=== PATIENT | female | born 1955 | race Caucasian/White ===

== ENCOUNTER 2016-08-04 08:44 | Emergency (ER) | payer BC ==
[2016-08-04] MEDS ORDERED: NORMAL SALINE 1,000 ML IV SCH (09:15)
[2016-08-04 09:27] LABS: Hemoglobin 14.3 gm/dL (12.5-16.0); Mean Cell Volume 85.5 fl (78-100); Mean Corpuscular Hemoglobin 28.4 pg (27-31); Mean Corpuscular Hgb Conc 33.3 g/dl (32-36); Mean Platelet Volume 13.6 fl (6.0-9.5); Neutrophil # 6.9 K/mm3 (1.3-6.0); Neutrophil % 56.2 % (42-75.0); Platelet Count 232 K/mm3 (150-450); Red Blood Count 5.03 M/mm3 (4.2-5.4); Red Cell Distribution Width 14.4 % (11.5-14.0); White Blood Count 12.3 K/mm3 (4.0-10.5)
[2016-08-04 09:41] LABS: Prothrombin Time (Patient) 11.2 Seconds (9.4-11.4)
[2016-08-04 09:46] LABS: INR 1.08 INR (0.90-1.10); Partial Thrombolplastin Time 23.7 Seconds (24-32)
[2016-08-04 09:51] LABS: Albumin * 3.7 gm/dl (3.4-5.0); Anion Gap 17.9 mmol/L (6.8-13.8); BUN/Creatinine Ratio 12.9 (9.0-21.6); Bilirubin, Total 0.6 mg/dL (0.0-1.1); Ca. Corrected For Albumin 8.8 mg/dL (8.4-10.2); Calcium * 8.9 mg/dL (7.9-10.9); Carbon Dioxide 25.6 mmol/L (24-32.6); Potassium 3.5 mmol/L (3.4-4.6); Total Protein 7.5 gm/dL (6.2-8.2); Troponin I 0.029 ng/ml (0.00-0.10)
--- OUTSIDE RECORDS SUMMARY | 2016-08-04 09:53 | XMS REPORT | Continuity of Care Document ---
:1955 Author Organization [facility] ([facility]) Address [address] [place] [address] Phone [phone] Care Team Providers Name Role Phone Celena Falcon Primary Care Provider [phone] Source Comments This disclosure is being made pursuant to the Care Everywhere program, applicable federal and state laws, and may not contain all informaitonavailable regarding this patient.[facility] ([facility]) Active Allergies and Adverse Reactions No Known Allergies Current Medications Prescription Sig. Disp. Refills Start Date End Date Status metFORMIN 1,000 mg Take 1,000 mg by Active tablet mouth 2 times daily with meals. levothyroxine Take 50 mcg by mouth Active (SYNTHROID) 50 mcg every morning before tablet breakfast. DULoxetine 60 mg XR Take 60 mg by mouth Active capsule daily. glipiZIDE 10 mg XL Take 10 mg by mouth 2 09/15/2015 Active tablet 3 times daily. VICTOZA 2-ANBER 0.6 Inject 1.2 mg 3 09/25/2015 Active mg/0.1 mL injection subcutaneously pen (3 mL) daily. lisinopril-hydrochlo Take 1 tablet by 2 10/18/2015 Active rothiazide 20-12.5 mouth daily. mg per tablet anastrozole 1 mg Take 1 tablet (1 mg 30 tablet 11 10/24/2015 Active tablet total) by mouth daily. Active Problems Problem Noted Date Unspecified disorder of thyroid 02/21/2007 Social History Tobacco Use Types Packs/Day Years Used Date Never Smoker Smokeless Tobacco: Never Used Last Filed Vital Signs Vital Sign Reading Time Taken Blood Pressure 154/96 10/24/2015 10:24 AM CDT Pulse 96 10/24/2015 10:24 AM CDT Temperature 36.4 C (97.5 F) 10/24/2015 10:24 AM CDT Respiratory Rate 16 10/24/2015 10:24 AM CDT Height 1.676 m (5' 5.98") 10/19/2013 1:08 PM CDT Weight 90.1 kg (198 lb 10.2 oz) 10/24/2015 10:24 AM CDT Body Mass Index 32.08 10/24/2015 10:24 AM CDT Oxygen Saturation 96% 10/19/2013 1:08 PM CDT Plan of Care Health Maintenance Due Date Last Done Comments HCV Screening 1955 Hepatitis B Vaccine (1 of 3 - Primary Series) 1955 Tdap Vaccine 1968 Lipid Disorder Screening 08/20/1975 MMR Vaccine 08/20/1975 Td Vaccine 08/20/1975 Pneumococcal Vaccine (1 of 3 - PCV13) 1976 Cervical Cancer Screening 08/20/1987 Mammogram 1997 Colonoscopy 2007 Influenza Vaccine: Seasonal (#1) 01/02/2016 Results from Last 3 Months Not on file
[2016-08-04] MEDS ORDERED: SODIUM CHLORIDE IV ONE (10:27)
[2016-08-04] MEDS ORDERED: LEVOFLOXACIN/D5W 750 MG/150 ML BAG IV SCH (10:30)
--- NOTE | 2016-08-04 10:32 | ERNOTE ---
Chest Pain/Cardiac HPI Date of Service: 08/04/16 Chief Complaint: Chest Pain Time Seen by Provider: 08/04/16 09:13 Source: patient Exam Limitations: no limitations Immunizations: IMMUNIZATION HX Immunizations Up to Date Yes Allergies/Adverse Reactions: Allergies cephalexin Allergy (Verified 08/04/16 09:07) sulfamethoxazole [From Bactrim] Allergy (Verified 08/04/16 09:07) trimethoprim [From Bactrim] Allergy (Verified 08/04/16 09:07) Home Medications: HOME MEDICATIONS Anastrozole 1 mg PO DAILY 11/21/12 [Last Taken Unknown] Glipizide [Glipizide Xl] 10 mg PO TID 11/21/12 [Last Taken Unknown] Levothyroxine Sodium [Synthroid] 0.5 mcg PO DAILY 11/21/12 [Last Taken Unknown] Liraglutide [Victoza 2-Kamlesh] 1.2 mg SQ DAILY 11/21/12 [Last Taken Unknown] Lisinopril/Hydrochlorothiazide [Lisinopril-Hctz 20-12.5 mg Tab] 1 each PO DAILY 11/21/12 [Last Taken Unknown] Metformin HCl [Metformin HCl ER] 1,000 mg PO BID 11/21/12 [Last Taken Unknown] Duloxetine HCl [Cymbalta] 60 mg PO DAILY 08/26/14 [Last Taken Unknown] ALPRAZolam [Xanax] 0.25 mg PO TID PRN 08/04/16 [Last Taken Unknown] Naproxen Sodium [Aleve] 220 mg PO DAILY 08/04/16 [Last Taken Unknown] Narrative: Patient comes due to Chest Pain, coughing, fatigue, fast heart rate, and weakness. Timing: constant Severity/Quality: moderate Location: central Chest Pain Radiation: no radiation Activities at Onset: activity Modifying Factors - Improves: Present: nothing Modifying Factors - Worsens: Present: coughing, movement Nitro Today/Relief: no nitro taken today Aspirin Treatment Today: no aspirin today Associated Symptoms: Present: cough, shortness of breath, fever/chills, weakness. Absent: headache, dizziness, syncope, diaphoresis, palpitations, heartburn, nausea, abdominal pain, back pain, swelling/lump in chest Prior Chest Pain/Cardiac Workup: Denies: prior chest pain Prior Treatment: Reports: recently seen - Patient was send from the clinic today Review of Systems - Review of Systems Constitutional: Present: fever, chills, weakness, fatigue, malaise EYE: Present: no symptoms reported ENT: Present: no symptoms reported Respiratory: Present: cough Cardiology: Present: chest pain, palpitations. Absent: syncope, edema, claudication Gastrointestinal/Abdominal: Present: no symptoms reported Genitourinary: Present: no symptoms reported Musculoskeletal: Present: no symptoms reported Skin: Present: no symptoms reported Neurological: Present: no symptoms reported Endocrine: Present: no symptoms reported Hematologic/Lymphatic: Present: no symptoms reported Psych: Present: no symptoms reported All Other Systems: All systems neg except as marked - Patient's Past Medical History Patient History - Medical: Anxiety, Diabetes Type 2, Hypothyroidism Patient History - Cardiac/Respiratory: Hypertension, Hyperlipidemia Patient History - Cancer: Breast Patient History - Other: AIDS - Social History Living Situations: home Psych History: Hx of Anxiety, Hx of Depression Alcohol Use: none Drug Use: none - Immunizations Immunizations Up to Date: Yes Physical Exam - Physical Exam General Appearance: Present: wd/wn, alert, no apparent distress. Absent: obese , cachetic Eye Exam: Normal inspection: bilateral, PERRL: bilateral, EOMI: bilateral Ears, Nose, Throat: Present: normal ENT inspection Neck: Present: normal inspection, nontender. Absent: carotid bruit Respiratory: Present: chest tenderness - R side more, respiratory distress - moderate, expiration (prolonged). Absent: accessory muscle use Cardiovascular/Chest: Present: no murmur, normal peripheral pulses, tachycardia. Absent: JVD Gastrointestinal/Abdominal: Present: normal bowel sounds, nontender, nondistended, soft, no organomegaly Extremity Exam: Present: normal inspection, non-tender, normal range of motion, no edema Neurological Exam: Present: alert, oriented, normal mood/affect, no motor/ sensory deficits Skin Exam: Present: normal color, warm/dry Lymphatic Exam: Present: no adenopathy ED Progress - Date and Time Seen: Date and Time: 08/04/16 11:38 PORT/PSI Score: Class III 08/04/16 11:40 Hospitalist has been paged. 08/04/16 12:13 Hospitalist will come and see patient at ER 08/04/16 13:05 Patient's case has been presented to Dr. Quintero and recommendation for transfer was given. Patient's case has been presented to Dr. Milner at [facility] who accepted patient in transfer ER to ER. - Results and Orders Patient's Lab Results:: I have reviewed the patient's lab results. Results and Orders: LA: 3.7 Trop: Negative INR: Normal CBC: WBC 12K CMP: Hyperglycemia - Vital Signs Patient's Vital Signs:: I have reviewed the patient's vital signs. Vital Signs: Vital Signs 08/04/16 08/04/16 08/04/16 08:57 09:22 09:34 Temperature 36.5 C Pulse Rate 106 H 110 H 116 H Respiratory 19 28 H Rate Blood Pressure 130/87 145/96 O2 Sat by Pulse 88 L 90 Oximetry 08/04/16 10:05 Temperature Pulse Rate 110 H Respiratory 20 Rate Blood Pressure 145/94 O2 Sat by Pulse 90 Oximetry - EKG EKG: NSR, LBBB EKG read: Interp. by me EKG Comments: No ST Elevation, no previous to compare - CT/Ultrasound CT/Ultrasound Narrative: CTA of the chest was done. No PE reported. Patient has bilateral pleural effusions - Progress/Reassessment Chief Complaint: Chest Pain Progress:: Improved - Transfer of Care Expected Disposition: Transfer Plan - Plan Plan: Case will be presented to Hospitalist. Departure - Departure Clinical Impression: Pleural effusion Chest pain Qualifiers: Chest pain type: unspecified Qualified Code(s): R07.9 - Chest pain, unspecified Dyspnea Qualifiers: Dyspnea type: dyspnea on exertion Qualified Code(s): R06.09 - Other forms of dyspnea Pneumonia Qualifiers: Pneumonia type: due to unspecified organism Laterality: bilateral Lung location : unspecified part of lung Qualified Code(s): J18.9 - Pneumonia, unspecified organism CHF (congestive heart failure) Qualifiers: Congestive heart failure type: unspecified congestive heart failure type Congestive heart failure chronicity: acute Qualified Code(s): I50.9 - Heart failure, unspecified Condition: Good Referrals: Celena Falcon MD [Primary Care Provider] -
--- NOTE | 2016-08-04 10:42 | OR ---
Anesthesia Procedure Note - Anesthesia Procedure Note Date of Service: 08/04/16 Narrative: Vital Signs - Last Taken Temp 36.5 C 08/04/16 08:57 Pulse 110 H 08/04/16 10:26 Resp 27 H 08/04/16 10:26 BP 145/88 08/04/16 10:26 Pulse Ox 89 L 08/04/16 10:26 O2 Oxygen Delivery Method Nasal Cannula 08/04/16 10:36 ANESTHESIA PROCEDURE NOTE Date of Procedure: 08/04/2016 Time of procedure: 1010. Performed by: BORIS Baxter CRNA, MSN Preprocedure diagnosis: Chest pain, shortness of breath, lack of venous access for VQ scan. Post procedure diagnosis: Same. Procedure: Venipuncture for IV access. Indications: Lack of IV access for VQ scanning. Findings: See below. Details of the procedure: Ms. Maloney is a patient in the emergency department waiting for VQ scan. She has symptoms of chest pain and shortness of breath in which an MRI is not apparent. She has had a previous right mastectomy and traditionally does not have blood drawn arrive ease initiated in the right side , however, she has not had dyno technician of swelling in since the right arm her mastectomy. She does admit to having had IVs and procedures done in the right arm without issue in the past. The procedure and expectations and risks were discussed and the patient accepts and understands. The patient was prepped with Betadine and alcohol, 0.1 mL of 1% lidocaine solution was injected at the intended IV site. A #18-gauge IV was initiated in the right forearm in what appears to be the basilic vein. Heparin lock was attached and flushed with sterile saline, then secured in place. EBL: Minimal. Fluids: N/A. Specimen: N/A. Post procedure condition: The patient tolerated the procedure well. No complications were noted. Thank you for this consultation. Javier Dickson CRNA, RADIOLOGICAL HEALTH SPECIALIST, MSN
[2016-08-04] MEDS ORDERED: FUROSEMIDE 10 MG/ML VIAL IV ONE (12:10)
[2016-08-04] MEDS ORDERED: NORMAL SALINE 3,000 ML IV ONE (12:11)
[2016-08-04] MEDS ORDERED: FUROSEMIDE 10 MG/ML VIAL ONE (12:12)
[2016-08-04 15:11] VITALS: BP 137/91
== END 2016-08-04 14:46 | disposition short-term general hospital (02) ==
LOC: ER 08:44
DX: J90 Pleural effusion, not elsewhere classified (principal); R07.9 Chest pain, unspecified; R06.09 Other forms of dyspnea; J18.9 Pneumonia, unspecified organism; I50.9 Heart failure, unspecified; F41.8 Other specified anxiety disorders; E11.9 Type 2 diabetes mellitus without complications; E03.9 Hypothyroidism, unspecified; E78.5 Hyperlipidemia, unspecified; I10 Essential (primary) hypertension

== ENCOUNTER 2016-10-02 06:33 | Emergency (ER) | payer BC ==
--- NOTE | 2016-10-02 06:38 | ERNOTE ---
Dizziness ER Record Presenting Symptoms: dizziness Time Seen by Provider: 10/02/16 06:37 Source: patient Exam Limitations: no limitations Immunizations: IMMUNIZATION HX Immunizations Up to Date Yes Allergies/Adverse Reactions: Allergies Allergy/AdvReac Type Severity Reaction Status Date / Time cephalexin Allergy Verified 10/02/16 06:39 sulfamethoxazole Allergy Verified 10/02/16 06:39 [From Bactrim] trimethoprim [From Bactrim] Allergy Verified 10/02/16 06:39 Home Medications: HOME MEDICATIONS Levothyroxine Sodium [Synthroid] 50 mcg PO DAILY 11/21/12 [Last Taken Unknown] metFORMIN HCL [Metformin HCl ER] 1,000 mg PO BID 11/21/12 [Last Taken Unknown] Duloxetine HCl [Cymbalta] 60 mg PO DAILY 08/26/14 [Last Taken Unknown] ALPRAZolam [Xanax] 0.25 mg PO TID PRN 08/04/16 [Last Taken Unknown] Anastrozole [Arimidex] 1 mg PO DAILY 10/02/16 [Last Taken Unknown] Aspirin [Mariaelena Chewable] 81 mg PO DAILY 10/02/16 [Last Taken Unknown] Atorvastatin Calcium [Lipitor] 40 mg PO HS 10/02/16 [Last Taken Unknown] Carvedilol [Coreg] 6.25 mg PO BID 10/02/16 [Last Taken Unknown] Cholecalciferol (Vitamin D3) [Vitamin D3] 5,000 unit PO DAILY 10/02/16 [Last Taken Unknown] Digoxin [Lanoxin] 0.125 mg PO DAILY 10/02/16 [Last Taken Unknown] Furosemide [Lasix] 40 mg PO DAILY 10/02/16 [Last Taken Unknown] Insulin Detemir [Levemir] 40 units SC QAM 10/02/16 [Last Taken Unknown] Insulin Detemir [Levemir] 42 units SC QPM 10/02/16 [Last Taken Unknown] Insulin Lispro [Humalog] 100 unit SQ TID 10/02/16 [Last Taken Unknown] Levofloxacin [Levaquin] 250 mg PO DAILY #3 tablet 10/02/16 [Last Taken Unknown] Lisinopril [Zestril] 2.5 mg PO DAILY 10/02/16 [Last Taken Unknown] Spironolactone [Aldactone] 25 mg PO DAILY 10/02/16 [Last Taken Unknown] - History of Present Illness Narrative: Pt got up to use the bathroom this am. After using the bathroom she got up and to go back to the bedroom and got a little dizzy and fell. Denies LOC denies head or neck trauma/ pain. Dizziness improved Timing and Duration: sudden onset, better Noted on awakening:: No Severity: max: moderate Severity: currently: mild Associated Symptoms: Absent: hearing loss, ringing/roaring in ear, nausea, vomiting, headache Sense of movement: Present: vague Fainted/near fainted while:: Present: standing Decreased ability to stand/walk:: Present: off balance Usually:: Present: walks w/o assistance Prior Treament: Reports: recently seen - by cardiology and had cardiac angiogram which was normal per patient Review of Systems - Review of Systems Constitutional: Absent: recent illness, fever EYE: Present: no symptoms reported ENT: Present: no symptoms reported Respiratory: Absent: shortness of breath Cardiology: Absent: chest pain Gastrointestinal/Abdominal: Present: no symptoms reported Genitourinary: Present: no symptoms reported Musculoskeletal: Present: back pain - minor, mid back from fall Skin: Present: no symptoms reported Neurological: Present: no symptoms reported Endocrine: Present: no symptoms reported Hematologic/Lymphatic: Present: no symptoms reported Psych: Present: no symptoms reported - Patient's Past Medical History Patient History - Medical: Anxiety, Diabetes Type 2, Hypothyroidism Patient History - Cardiac/Respiratory: Hypertension, Hyperlipidemia Patient History - Cancer: Breast Patient History - Other: AIDS - Social History Living Situations: home Psych History: Hx of Anxiety, Hx of Depression Alcohol Use: none Drug Use: none - Immunizations Immunizations Up to Date: Yes Physical Exam - Physical Exam General Appearance: Present: wd/wn, alert, no apparent distress Eye Exam: Normal inspection: bilateral, PERRL: bilateral, EOMI: bilateral Ears, Nose, Throat: Present: normal ENT inspection, normal pharynx Neck: Present: normal inspection, nontender, supple, full range of motion Respiratory: Present: no respiratory distress, normal breath sounds, chest nontender, lungs clear Cardiovascular/Chest: Present: regular rate, rhythm, no murmur, normal peripheral pulses Gastrointestinal/Abdominal: Present: normal bowel sounds, nontender, soft Back Exam: Present: no vertebral tenderness, other - lateral tenderness on the right mid thoracic Extremity Exam: Present: normal inspection, non-tender, normal range of motion, no edema Neurological Exam: Present: alert, oriented, normal mood/affect, no motor/ sensory deficits Skin Exam: Present: normal color, warm/dry ED Progress - Results and Orders Patient's Lab Results:: I have reviewed the patient's lab results. Results and Orders: Laboratory Tests 10/02/16 10/02/16 10/02/16 06:55 06:55 08:01 WBC 17.0 H Hgb 14.6 Hct 42.6 Plt Count 242 Sodium 135 Potassium 3.9 Chloride 92 L Carbon Dioxide 30.6 Anion Gap 16.3 H BUN 23 Creatinine 1.53 H Est GFR (Non-Af Amer) 37 L BUN/Creatinine Ratio 15.0 Random Glucose 331 H Calcium 9.8 Calcium Adj for Albumin 9.9 Total Bilirubin 0.8 AST 41 ALT 34 Alkaline Phosphatase 65 Total Protein 7.8 Albumin 3.5 Urine Color Yellow Urine Appearance Slightly cloudy Urine pH 5.5 Ur Specific Newell 1.020 Urine Protein Negative Urine Glucose (UA) Negative Urine Ketones Negative Urine Blood Negative Urine Nitrate Negative Urine Bilirubin Negative Urine Urobilinogen Normal Ur Leukocyte Esterase 75 H Urine RBC None seen Urine WBC 0-5 Ur Epithelial Cells 0-5 Urine Bacteria None seen Hyaline Casts 0-5 H Urine Yeast Few - 1+ H Urine Culture Comments Culture to follow - Vital Signs Patient's Vital Signs:: I have reviewed the patient's vital signs. - EKG EKG: LBBB - , left atrial enlargement. EKG read: Interp. by me EKG Comments: unchanged from 08/04/16 - X-Ray X-Ray #1 X-Ray: chest Interpretation: Reviewed by me X-ray Comments: nothing acute, no infiltrate or effusion. No apparent bony abnormalities - CT/Ultrasound CT/Ultrasound Narrative: CT head without contrast: Findings: The lateral ventricles and sulci are symmetric and within normal limits for the patient's age. There is mild cortical atrophy. I do not see evidence for acute blood, extra -axial collection, or mass effect. I do not see evidence for chronic cortical or definable acute cortical material infarction. The 3rd and 4th ventricles are midline and are of normal size. There is some streak artifact in the posterior fossa, but the cerebellum and visualized oswaldo appear normal. The ethmoid sinuses demonstrate no significant mucosal disease. The frontal, sphenoid, and visualized maxillary sinuses are clear. The mastoid air cells and middle ears appear to be normally aerated. Bone windows demonstrate no evidence for fracture. I do not see evidence for significant soft tissue swelling overlying the calvarium. IMPRESSION: 1. NO ACUTE INTRACRANIAL PROCESS Electronically signed by Lauri Martinez M.D.. - Progress/Reassessment Progress:: Improved Progress Note-Subjective: 10/02/16 08:49 Pt states she is not dizzy and feeling much better Departure Clinical Impression: UTI (urinary tract infection) Qualifiers: Urinary tract infection type: acute cystitis Hematuria presence: without hematuria Qualified Code(s): N30.00 - Acute cystitis without hematuria - Departure Disposition: Home Follow Up Needed Condition: Good Instructions: Urinary Tract Infection, Adult, [id number] Additional Instructions: See your regular doctor if not improving within 3-4 days or if worsening. Return to ER as needed Referrals: Kiera Quintero MD [Primary Care Provider] - Prescriptions: Levofloxacin [Levaquin] 250 mg PO DAILY #3 tablet
--- OUTSIDE RECORDS SUMMARY | 2016-10-02 07:00 | XMS REPORT | Continuity of Care Document ---
:1955 Author Organization [facility] ([facility]) Address [address] [place] [address] Phone [phone] Care Team Providers Name Role Phone Celena Falcon Primary Care Provider [phone] Source Comments This disclosure is being made pursuant to the Care Everywhere program, applicable federal and state laws, and may not contain all informaitonavailable regarding this patient.[facility] ([facility]) Active Allergies and Adverse Reactions No Known [...] 09/15/2015 Active tablet 3 times daily. VICTOZA 2-ABNER 0.6 Inject 1.2 mg 3 09/25/2015 Active [...]
[2016-10-02 07:01] LABS: Hematocrit 42.6 % (37.0-47.0); Hemoglobin 14.6 gm/dL (12.5-16.0); Mean Cell Volume 85.9 fl (78-100); Mean Corpuscular Hemoglobin 29.4 pg (27-31); Mean Corpuscular Hgb Conc 34.3 g/dl (32-36); Mean Platelet Volume 13.7 fl (6.0-9.5); Neutrophil # 10.9 K/mm3 (1.3-6.0); Neutrophil % 64.1 % (42-75.0); Platelet Count 242 K/mm3 (150-450); Red Blood Count 4.96 M/mm3 (4.2-5.4); Red Cell Distribution Width 14.6 % (11.5-14.0)
[2016-10-02 07:14] LABS: Albumin * 3.5 gm/dl (3.4-5.0); Anion Gap 16.3 mmol/L (6.8-13.8); Bilirubin, Total 0.8 mg/dL (0.0-1.1); Ca. Corrected For Albumin 9.9 mg/dL (8.4-10.2); Calcium * 9.8 mg/dL (7.9-10.9); Carbon Dioxide 30.6 mmol/L (24-32.6); Potassium 3.9 mmol/L (3.4-4.6); Total Protein 7.8 gm/dL (6.2-8.2)
[2016-10-02 08:31] LABS: Urine Bilirubin Negative (NEGATIVE); Urine Blood Negative /ul (NEGATIVE); Urine Ketone Negative (NEGATIVE); Urine Nitrite Negative (NEGATIVE); Urine Protein Negative (NEGATIVE); Urine Urobilinogen Normal (NORMAL); Urine pH 5.5 pH (5.0-7.0)
[2016-10-02 08:43] LABS: Urine Appearance Slightly Cloudy; Urine Bacteria None Seen; Urine Color Yellow; Urine Hyaline Cast 0-5 /LPF; Urine RBC None Seen /hpf (0-5); Urine WBC 0-5 /hpf (0-5); Urine Yeast Few - 1+
[2016-10-02 08:56] VITALS: BP 112/58
== END 2016-10-02 09:23 | disposition home or self-care (01) ==
LOC: ER 06:33
DX: N30.00 Acute cystitis without hematuria (principal); E11.9 Type 2 diabetes mellitus without complications; Z79.4 Long term (current) use of insulin; E03.9 Hypothyroidism, unspecified; F41.9 Anxiety disorder, unspecified; E78.5 Hyperlipidemia, unspecified; I10 Essential (primary) hypertension; Z85.3 Personal history of malignant neoplasm of breast

== ENCOUNTER 2017-01-03 22:38 | Observation (INO) | payer BC ==
[2017-01-03] MEDS ORDERED: ASPIRIN 81 MG TAB.CHEW ONE (22:52)
[2017-01-03] MEDS ORDERED: ASPIRIN 81 MG TAB.CHEW PO ONE (22:52)
[2017-01-03] MEDS: NITROGLYCERIN 0.4 MG/TAB BTL SL PRN ×3 (22:54→23:04)
[2017-01-03 23:05] LABS: Hematocrit 39.2 % (37.0-47.0); Hemoglobin 13.6 gm/dL (12.5-16.0); Mean Corpuscular Hemoglobin 29.5 pg (27-31); Mean Corpuscular Hgb Conc 34.7 g/dl (32-36); Mean Platelet Volume 12.5 fl (6.0-9.5); Neutrophil # 7.7 K/mm3 (1.3-6.0); Neutrophil % 58.7 % (42-75.0); Platelet Count 260 K/mm3 (150-450); Red Blood Count 4.61 M/mm3 (4.2-5.4); Red Cell Distribution Width 13.2 % (11.5-14.0); White Blood Count 13.1 K/mm3 (4.0-10.5)
--- NOTE | 2017-01-03 23:05 | ERNOTE ---
Chest Pain/Cardiac HPI Date of Service: 01/03/17 Chief Complaint: Chest Pain Source: patient Immunizations: IMMUNIZATION HX Immunizations Up to Date Yes History of Influenza Vaccine No Allergies/Adverse Reactions: Allergies cephalexin Allergy (Verified 01/04/17 03:53) sulfamethoxazole [From Bactrim] Allergy (Verified 01/04/17 03:53) trimethoprim [From Bactrim] Allergy (Verified 01/04/17 03:53) Home Medications: HOME MEDICATIONS Levothyroxine Sodium [Synthroid] 50 mcg PO DAILY 11/21/12 [Last Taken Unknown] metFORMIN HCL [Metformin HCl ER] 1,000 mg PO BID 11/21/12 [Last Taken Unknown] Duloxetine HCl [Cymbalta] 60 mg PO DAILY 08/26/14 [Last Taken Unknown] ALPRAZolam [Xanax] 0.25 mg PO TID PRN 08/04/16 [Last Taken Unknown] Anastrozole [Arimidex] 1 mg PO DAILY 10/02/16 [Last Taken Unknown] Aspirin [Mariaelena Chewable Aspirin] 81 mg PO DAILY 10/02/16 [Last Taken Unknown] Atorvastatin Calcium [Lipitor] 40 mg PO HS 10/02/16 [Last Taken Unknown] Carvedilol [Coreg] 6.25 mg PO BID 10/02/16 [Last Taken Unknown] Cholecalciferol (Vitamin D3) [Vitamin D3] 5,000 unit PO DAILY 10/02/16 [Last Taken Unknown] Digoxin [Lanoxin] 0.125 mg PO DAILY 10/02/16 [Last Taken Unknown] Furosemide [Lasix] 40 mg PO DAILY 10/02/16 [Last Taken Unknown] Insulin Detemir [Levemir] 42 units SC QAM 10/02/16 [Last Taken Unknown] Insulin Detemir [Levemir] 44 units SC QPM 10/02/16 [Last Taken Unknown] Lisinopril [Zestril] 2.5 mg PO DAILY 10/02/16 [Last Taken Unknown] Spironolactone [Aldactone] 25 mg PO DAILY 10/02/16 [Last Taken Unknown] Carvedilol [Coreg] 3.125 mg PO BID 01/04/17 [Last Taken Unknown] Insulin Aspart [Novolog] See Protocol SC AC 01/04/17 [Last Taken Unknown] Nitroglycerin 0.4 mg SL PRN #25 tab.subl 01/04/17 [Last Taken Unknown] Narrative: 61 year old with the acute onset of substernal chest pain at 2230 hours, that does not radiate. She has not felt well all day, and does not recognize any aggravating or relieving factors. There have been other episodes of chest pain previous, but this is the worst episode and has been sustained. s/p cardiac catherterization in September 2016, but did not demonstrate significant pathology ( as per the patient). Currently being followed by cardiology at [place] (Dr. Hall) and in [place]. Schedule to have a defibrilator placed next month. Denies any previous history of NH, PE/DVT. Timing: constant Severity/Quality: moderate Location: substernal Chest Pain Radiation: no radiation Activities at Onset: none Modifying Factors - Improves: Present: nothing Modifying Factors - Worsens: Present: nothing Aspirin Treatment Today: 81 mg x 1 Associated Symptoms: Present: denies symptoms Prior Chest Pain/Cardiac Workup: Reports: prior chest pain Prior Treatment: Reports: treated by physician Review of Systems - Review of Systems Constitutional: Present: no symptoms reported EYE: Present: no symptoms reported ENT: Present: no symptoms reported Respiratory: Present: no symptoms reported Cardiology: Present: See HPI Gastrointestinal/Abdominal: Present: no symptoms reported Genitourinary: Present: no symptoms reported Musculoskeletal: Present: no symptoms reported Skin: Present: no symptoms reported Neurological: Present: no symptoms reported Endocrine: Present: no symptoms reported Hematologic/Lymphatic: Present: no symptoms reported - Patient's Past Medical History Patient History - Medical: Anxiety, Diabetes Type 2, Hypothyroidism Patient History - Cardiac/Respiratory: Hypertension, Hyperlipidemia Patient History - Cancer: Breast Patient History - Surgical Procedures: Appendectomy, Cancer Surgery, Hysterectomy, Orthopedic Patient History - Other: AIDS - Family History Mother Family History - Medical: Diabetes Type 1 Family History - Cardiac/Respiratory: Myocardial Infarction Family History - Cancer: Lung - Social History Living Situations: home Psych History: Hx of Anxiety, Hx of Depression Smoking Status: Never smoker Alcohol Use: none Drug Use: none - Immunizations Immunizations Up to Date: Yes History of Influenza Vaccine: No Physical Exam - Physical Exam General Appearance: Present: no apparent distress Head Exam: Present: normal inspection Eye Exam: Normal inspection: bilateral Ears, Nose, Throat: Present: normal ENT inspection Neck: Present: normal inspection, supple, full range of motion Respiratory: Present: no respiratory distress Cardiovascular/Chest: Present: regular rate, rhythm Gastrointestinal/Abdominal: Present: nontender, nondistended Back Exam: Present: normal inspection Extremity Exam: Present: normal inspection Neurological Exam: Present: alert, oriented, normal mood/affect Skin Exam: Present: normal color, warm/dry ED Progress - Results and Orders Patient's Lab Results:: I have reviewed the patient's lab results. - Vital Signs Patient's Vital Signs:: I have reviewed the patient's vital signs. Vital Signs: Vital Signs 01/03/17 22:44 Temperature 37.2 C Pulse Rate 113 H Respiratory 20 Rate Blood Pressure 146/87 O2 Sat by Pulse 93 Oximetry - EKG EKG: other EKG read: Interp. by me EKG Comments: sinus tach, rate 111, left axis deviation, no change from 10/02/16. - X-Ray X-Ray #1 X-Ray: chest Interpretation: Interp. by me X-ray Comments: no acute changes - Progress/Reassessment Chief Complaint: Chest Pain Progress:: Improved Progress Note-Subjective: 01/04/17 00:30 The pain was markedly decreased after the the third nitrglycerin tablet, and now down at a 1/10. Will be given Fentanyl 25 ug IV and Zofran four mg IV. D-dimer was found to be elevated and oral attempts were made to obtain a antecubital intravenous catheter but not be done. It was therefore elected that the patient should be admitted to have a VQ scan done to rule out a pulmonary embolus. She was given Lovenox cutaneously. She remained stable while she was in the emergency department. 01/05/17 06:46 Departure - Departure Clinical Impression: Chest pain Qualifiers: Chest pain type: unspecified Qualified Code(s): R07.9 - Chest pain, unspecified Disposition: [facility] Condition: Stable
[2017-01-03 23:16] LABS: Prothrombin Time (Patient) 10.5 Seconds (9.4-11.4)
[2017-01-03 23:23] LABS: Troponin I 0.024 ng/ml (0.00-0.10)
[2017-01-03 23:25] LABS: Albumin * 3.4 gm/dl (3.4-5.0); Anion Gap 18.4 mmol/L (6.8-13.8); BUN/Creatinine Ratio 15.8 (9.0-21.6); Bilirubin, Total 0.5 mg/dL (0.0-1.1); Ca. Corrected For Albumin 9.1 mg/dL (8.4-10.2); Calcium * 8.9 mg/dL (7.9-10.9); Carbon Dioxide 25.2 mmol/L (24-32.6); Potassium 3.6 mmol/L (3.4-4.6); Total Protein 7.3 gm/dL (6.2-8.2)
[2017-01-03 23:27] LABS: INR 1.01 INR (0.90-1.10); Partial Thrombolplastin Time 24.4 Seconds (24-32)
--- OUTSIDE RECORDS SUMMARY | 2017-01-03 23:36 | XMS REPORT | Summary of Care ---
:1955 Author Organization [facility] Address [address] [place] [address] [id number] [place] [address] Care Team Providers Name Role Phone EzekielCelena Elva Primary Care Physician Encounter Date(s): 11/19/16 - 11/19/16 [facility] [address] [id number] Discharge Disposition: 01 Discharged to Home or Self Care Attending Physician: Ronald Flores MD Referring Physician: Ronald Flores MD Vital Signs Most recent to oldest [Reference Range]: 1 Peripheral Pulse Rate [60-100 bpm] 91 bpm (11/19/16 1:36 PM) Blood Pressure [90-130/60-90 mmHg] 110/56mmHg (11/19/16 1:36 PM) Mean Arterial Pressure, Cuff 74 mmHg (11/19/16 1:36 PM) Most recent to oldest [Reference Range]: 1 Height/Length Measured 168 cm (11/19/16 1:36 PM) Weight Dosing 83.30 kg1 (11/19/16 1:49 PM) Weight Measured 83.3 kg (11/19/16 1:36 PM) BSA Measured 1.93 m2 (11/19/16 1:36 PM) Body Mass Index Measured 29.51 kg/m2 (11/19/16 1:36 PM) 1Result Comment: This result was because the dosing weight was either not entered or it is>30 days old. This result is based off: Weight Measured November 19, 2016 13:36:00 CDT by Arti Hollingsworth CMA Problem List Condition Effective Dates Status Health Status Informant Acute CHF(Confirmed) Active History of retinal tear(Confirmed)1 Active HTN - Hypertension(Confirmed) Resolved patient Left bundle-branch block(Confirmed) Active Knee osteoarthritis(Confirmed) Active Palliative care(Confirmed) Active Pleural effusion(Confirmed) Active 1Right side Allergies, Adverse Reactions, Alerts No Known Medication Allergies Medications Advil 200 mg, Oral, q6hr interval, PRN as needed for arthritis, 0 Refill(s), Start Date: 03/25/15 13:38:00 CDT Start Date: 03/25/15 Stop Date: 08/20/16 Status: DiscontinuedAdvil PM 2 tab(s), Oral, HS, PRN as needed for insomnia, 0 Refill(s), Start Date: 13:38:00 CDT Start Date: 03/25/15 Stop Date: 08/09/16 Status: Discontinuedanastrozole mg, Oral, Daily, 0 Refill(s), Start Date: 03/25/15 13:38:00 CDT Start Date: 03/25/15 Stop Date: 08/04/16 Status: Completedanastrozole 1 mg oral tablet 1 tab(s), Oral, Daily, # 30 tab(s), 0 Refill(s), Start Date: 08/04/16 15:41:00 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 Start Date: 08/04/16 Status: Orderedaspirin 81 mg oral delayed release tablet 1 tab(s), Oral, Daily, # 30 tab(s), 0 Refill(s), Start Date: 08/09/16 12:48:00 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 Start Date: 08/09/16 Status: Orderedatorvastatin 40 mg oral tablet 1 tab(s), Oral, HS, # 30 tab(s), 0 Refill(s), Start Date: 08/09/16 12:49:00 [employer]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 Start Date: 08/09/16 Status: Orderedcarvedilol 3.125 mg oral tablet 1 tab(s), Oral, BID, # 60 tab(s), 0 Refill(s), Start Date: 08/09/16 12:49:00 [employer]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 Start Date: 08/09/16 Stop Date: 08/20/16 Status: Discontinuedcarvedilol 6.25 mg oral tablet 1 tab(s), Oral, BID, # 60 tab(s), 3 Refill(s), Start Date: 08/20/16 16:26:40 CDT , Pharmacy: [place], [place] Start Date: 08/20/16 Status: Orderedcarvedilol 6.25 mg oral tablet 1 tab(s), Oral, BID, # 60 tab(s), 3 Refill(s), Start Date: 08/20/16 11:20:00 CDT , other reason (Rx) Start Date: 08/20/16 Stop Date: 08/20/16 Status: CompletedCoreg 3.125 mg oral tablet 1 tab(s), Oral, BID, # 180 tab(s), 0 Refill(s), Start Date: 11/19/16 13:41:00 CDT Start Date: 11/19/16 Status: Ordereddigoxin 125 mcg (0.125 mg) oral tablet 1 tab(s), Oral, Daily, # 30 tab(s), 0 Refill(s), Start Date: 08/09/16 12:49:00 [employer]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 Start Date: 08/09/16 Status: OrderedDULoxetine 60 mg oral delayed release capsule 1 cap(s), Oral, Daily, 0 Refill(s), Start Date: 03/25/15 13:38:00 CDT Start Date: 03/25/15 Status: Orderedfurosemide 40 mg oral tablet 1 tab(s), Oral, Daily, 0 Refill(s), Start Date: 09/20/16 11:02:00 CDT Start Date: 09/20/16 Status: OrderedglipiZIDE 10 mg oral tablet 1 tab(s), Oral, BID, 0 Refill(s), Start Date: 03/25/15 13:37:00 CDT Start Date: 03/25/15 Stop Date: 09/20/16 Status: CompletedHumaLOG See Instructions, subq TID AC as instructed, 0 Refill(s), Start Date: 09/20/16 11:04:00 CDT Special Instructions: subq TID AC as instructed Start Date: 09/20/16 Status: OrderedhydroCHLOROthiazide 12.5 mg oral capsule 1 cap(s), Oral, Daily, # 30 cap(s), 0 Refill(s), Start Date: 08/09/16 12:49:00 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 Start Date: 08/09/16 Stop Date: 08/20/16 Status: DiscontinuedLasix 40 mg oral tablet 1 tab(s), Oral, BID, # 28 tab(s), 0 Refill(s), Start Date: 08/09/16 12:49:00 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 Start Date: 08/09/16 Stop Date: 09/20/16 Status: CompletedLevemir 100 units/mL subcutaneous solution See Instructions, 40 units am, 42 units pm, 0 Refill(s), Start Date: 09/20/16 11 :04:00 CDT Special Instructions: 40 units am, 42 units pm Start Date: 09/20/16 Status: Orderedlevothyroxine 50 mcg (0.05 mg) oral tablet 1 tab(s), Oral, Daily, 0 Refill(s), Start Date: 03/25/15 13:37:00 CDT Start Date: 03/25/15 Status: Orderedlisinopril 2.5 mg oral tablet 1 tab(s), Oral, Daily, # 90 tab(s), 3 Refill(s), Start Date: 08/21/16 12:57:17 CDT, Pharmacy: [place], [place] Start Date: 08/21/16 Stop Date: 11/19/16 Status: Discontinuedlisinopril 2.5 mg oral tablet 1 tab(s), Oral, Daily, X 30 days, # 30 tab(s), 0 Refill(s), Start Date: 12:50:00 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 Start Date: 08/09/16 Stop Date: 08/21/16 Status: Completedlisinopril 5 mg oral tablet 1 tab(s), Oral, Daily, # 30 tab(s), 4 Refill(s), Start Date: 11/19/16 14:08:00 CDT, Pharmacy: [place], [place] Start Date: 11/19/16 Status: Orderedlisinopril-hydrochlorothiazide 20 mg-12.5 mg oral tablet 1 tab(s), Oral, Daily, 0 Refill(s), Start Date: 03/25/15 13:37:00 CDT Start Date: 03/25/15 Stop Date: 08/09/16 Status: DiscontinuedmetFORMIN 1000 mg oral tablet 1 tab(s), Oral, BID, 0 Refill(s), Start Date: 03/25/15 13:37:00 CDT Start Date: 03/25/15 Status: OrderedNovoLOG Subcutaneous, TIDAC, as directed by PCP, 0 Refill(s), Start Date: 09/20/16 11:05 :00 CDT Special Instructions: as directed by PCP Start Date: 09/20/16 Status: Orderedpotassium chloride 20 mEq oral tablet, extended release 1 tab(s), Oral, TIDMEALS, # 90 tab(s), 0 Refill(s), Start Date: 08/09/16 12:49: 00 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 Start Date: 08/09/16 Stop Date: 09/20/16 Status: Completedspironolactone 25 mg oral tablet 1 tab(s), Oral, Daily, 0 Refill(s), Start Date: 09/20/16 11:49:00 CDT Start Date: 09/20/16 Status: OrderedVictoza 1.2 mg, Subcutaneous, Daily, 0 Refill(s), Start Date: 03/27/15 12:49:00 CDT Start Date: 03/27/15 Stop Date: 09/20/16 Status: CompletedVitamin D3 5000 intl units oral tablet 1 tab(s), Oral, Daily, # 100 tab(s), 0 Refill(s), Start Date: 09/20/16 11:49:00 CDT Start Date: 09/20/16 Status: OrderedXanax 0.25 mg oral tablet 1 tab(s), Oral, TID, PRN for anxiety, 0 Refill(s), Start Date: 04/04/15 11:59: 00 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 Start Date: 04/04/15 Status: Ordered Results No data available for this section Immunizations Vaccine Date Refusal Reason influenza virus vaccine, inactivated 04/03/16 pneumococcal 23-polyvalent vaccine 08/05/16 Procedures Procedure Date Related Diagnosis Body Site Catheterization 09/2016 Arthroscopy Knee (Left, Knee L)1 04/06/15 Appendectomy Arthroscopy of knee2 Hysterectomy Mastectomy3 Thyroidectomy4 1auto-populated from documented surgical [id number] lymph nodes [id number] Social History No data available for this section Assessment and Plan No data available for this section
--- OUTSIDE RECORDS SUMMARY | 2017-01-03 23:37 | XMS REPORT | Summary of Care ---
:[address] [facility] Address [facility] [place] [address]- Care Team Providers Name Role Phone Celena Falcon Primary Care Physician Encounter Date(s): 08/04/16 - 08/09/[address] [address]- [facility] Discharge Diagnosis: Heart failure with reduced ejection fraction, NYHA class III Discharge Diagnosis: Left bundle-branch block Discharge Diagnosis: Acute hypoxemic respiratory failure Discharge Diagnosis: Subclinical hypothyroidism Discharge Diagnosis: Acute CHF Discharge Diagnosis: Pleural effusion Discharge Disposition: 01 Discharged to Home or Self Care Attending Physician: Radha Payne MD Admitting Physician: Elkin Vaughn MD Vital Signs Most recent to oldest 1 2 3 [Reference Range]: Temperature Temporal 36.6 DegC 36.5 DegC 36.4 DegC Artery [36-38 DegC] (08/09/16 12:00 PM) (08/09/16 7:22 AM) (08/09/16 4:00 AM) Heart Rate Monitored 102 bpm 116 bpm 98 bpm [60-100 bpm] *HI* *HI* (08/09/16 8:16 AM) (08/09/16 12:00 PM) (08/09/16 11:17 AM) Respiratory Rate [12-20 20 br/min 20 br/min 20 br/min br/min] (08/09/16 12:00 PM) (08/09/16 11:17 AM) (08/09/16 7:22 AM) SpO2 [90-100 %] 93 % 93 % 92 % (08/09/16 12:00 PM) (08/09/16 9:00 AM) (08/09/16 7:22 AM) SpO2 Location Left hand Left hand Left hand (08/09/16 4:00 AM) (08/09/16 12:00 AM) (08/08/16 7:30 PM) Blood Pressure 117/77mmHg 116/79mmHg 116/79mmHg [90-130/60-90 mmHg] (08/09/16 12:00 PM) (08/09/16 8:16 AM) (08/09/16 7:22 AM) Mean Arterial Pressure 82 mmHg 82 mmHg 84 mmHg Monitor Measure (08/09/16 4:00 AM) (08/09/16 12:00 AM) (08/08/16 7:30 PM) Vital Signs Additional 88-92% Information (08/05/16 11:18 AM) Recovery Systolic Blood 97 mmHg Pressure Supine (08/06/16 1:19 PM) Recovery Diastolic Blood 61 mmHg Pressure Supine (08/06/16 1:19 PM) Recovery Oxygen Flow Rate 8 L/min 8 L/min (08/07/16 8:31 AM) (08/06/16 1:19 PM) Recovery SpO2 94 % 92 % (08/07/16 8:31 AM) (08/06/16 1:19 PM) Blood Pressure Location Left arm Left arm Left arm (08/09/16 4:00 AM) (08/09/16 12:00 AM) (08/08/16 7:30 PM) Blood Pressure Supine 98/59mmHg [90-130/60-90 mmHg] (08/06/16 1:19 PM) Blood Pressure Sitting 85/59mmHg [90-130/60-90 mmHg] *LOW* (08/06/16 1:19 PM) Peripheral Pulse Rate 112 bpm with Activity (08/08/16 11:20 AM) Activity Oxygen Flow Rate 3 L/min 3 L/min 10 L/min (08/08/16 11:20 AM) (08/08/16 9:33 AM) (08/05/16 11:03 AM) Vital Signs w/ Activity O2 per NC Throughout the evaluation O2 Saturation remained 88%-92% on 10L Additional Info (08/08/16 11:20 AM) (08/05/16 11:03 AM) Most recent to oldest [Reference 1 2 3 Range]: Height/Length Measured 168 cm (08/04/16 5:12 PM) Height/Length Estimated 168 cm (08/09/16 11:17 AM) Weight Estimated 87 kg 87 kg (08/09/16 11:17 AM) (08/04/16 3:32 PM) Weight Dosing 83.70 kg1 83.10 kg2 87.00 kg (08/05/16 4:54 AM) (08/04/16 5:27 PM) (08/04/16 5:12 PM) Weight Measured 81.7 kg 82.4 kg 83.8 kg (08/09/16 4:00 AM) (08/08/16 4:00 AM) (08/07/16 6:03 AM) BSA Measured 1.93 m2 (08/04/16 5:12 PM) Body Mass Index Measured 28.95 kg/m2 29.20 kg/m2 29.69 kg/m2 (08/09/16 5:10 AM) (08/08/16 6:38 AM) (08/07/16 6:04 AM) Body Mass Index Estimated 30.82 kg/m2 (08/09/16 12:13 PM) 1Result Comment: This result was because the dosing weight was either not entered or it is>30 days old. This result is based off: Weight Measured August 05, 2016 04:00:00 EXPLOSIVES WORKER by Laury Dietrich2Result Comment: This result was because the dosing weight was either not entered or it is>30 days old. This result is based off: Weight Measured August 04, 2016 17:12:00 EXPLOSIVES WORKER by Lima Washburn Problem List Condition Effective Dates Status Health [...] 03/25/15 13:38:00 CDT Start Date: 03/25/15 Status: OrderedAdvil PM 2 tab(s), Oral, HS, PRN as needed for insomnia, 0 Refill(s), Start Date: 13:38:00 CDT Start Date: 03/25/15 Stop Date: 3/9/17 Status: Discontinuedanastrozole mg, Oral, Daily, 0 Refill(s), Start Date: 03/25/15 13:38:00 CDT Start Date: 03/25/15 Stop Date: 08/04/16 Status: Completedanastrozole 1 mg oral tablet 1 tab(s), Oral, Daily, # 30 tab(s), 0 Refill(s), Start Date: 08/04/16 15:41:00 EXPLOSIVES WORKER Start Date: 08/04/16 Status: Orderedaspirin 81 mg oral delayed release tablet 1 tab(s), Oral, Daily, # 30 tab(s), 0 Refill(s), Start Date: 08/09/16 12:48:00 EXPLOSIVES WORKER Start Date: 08/09/16 Status: Orderedatorvastatin 40 mg oral tablet 1 tab(s), Oral, HS, # 30 tab(s), 0 Refill(s), Start Date: 08/09/16 12:49:00 EXPLOSIVES WORKER Start Date: 08/09/16 Status: Orderedcarvedilol 3.125 mg oral tablet 1 tab(s), Oral, BID, # 60 tab(s), 0 Refill(s), Start Date: 08/09/16 12:49:00 EXPLOSIVES WORKER Start Date: 08/09/16 Status: Ordereddigoxin 125 mcg (0.125 mg) oral tablet 1 tab(s), Oral, Daily, # 30 tab(s), 0 Refill(s), Start Date: 08/09/16 12:49:00 EXPLOSIVES WORKER Start Date: 08/09/16 Status: OrderedDULoxetine 60 mg oral delayed release capsule 1 cap(s), Oral, Daily, 0 Refill(s), Start Date: 03/25/15 13:38:00 CDT Start Date: 03/25/15 Status: OrderedglipiZIDE 10 mg oral tablet 1 tab(s), Oral, BID, 0 Refill(s), Start Date: 03/25/15 13:37:00 CDT Start Date: 03/25/15 Status: OrderedhydroCHLOROthiazide 12.5 mg oral capsule 1 cap(s), Oral, Daily, # 30 cap(s), 0 Refill(s), Start Date: 08/09/16 12:49:00 EXPLOSIVES WORKER Start Date: 08/09/16 Status: OrderedLasix 40 mg oral tablet 1 tab(s), Oral, BID, # 28 tab(s), 0 Refill(s), Start Date: 08/09/16 12:49:00 EXPLOSIVES WORKER Start Date: 08/09/16 Stop Date: 08/23/16 Status: Orderedlevothyroxine 50 mcg (0.05 mg) oral tablet 1 tab(s), Oral, Daily, 0 Refill(s), Start Date: 03/25/15 13:37:00 CDT Start Date: 03/25/15 Status: Orderedlisinopril 2.5 mg oral tablet 1 tab(s), Oral, Daily, # 30 tab(s), 0 Refill(s), Start Date: 08/09/16 12:50:00 EXPLOSIVES WORKER Start Date: 08/09/16 Stop Date: 09/08/16 Status: Orderedlisinopril-hydrochlorothiazide 20 mg-12.5 mg oral tablet 1 tab(s), Oral, Daily, 0 Refill(s), Start Date: 03/25/15 13:37:00 CDT Start Date: 03/25/15 Stop Date: 08/09/16 Status: DiscontinuedmetFORMIN 1000 mg oral tablet 1 tab(s), Oral, BID, 0 Refill(s), Start Date: 03/25/15 13:37:00 CDT Start Date: 03/25/15 Status: Orderedpotassium chloride 20 mEq oral tablet, extended release 1 tab(s), Oral, TIDMEALS, # 90 tab(s), 0 Refill(s), Start Date: 08/09/16 12:49: 00 EXPLOSIVES WORKER Start Date: 08/09/16 Status: OrderedVictoza 1.2 mg, Subcutaneous, Daily, 0 Refill(s), Start Date: 03/27/15 12:49:00 CDT Start Date: 03/27/15 Status: OrderedXanax 0.25 mg oral tablet 1 tab(s), Oral, TID, PRN for anxiety, 0 Refill(s), Start Date: 04/04/15 11:59: 00 EXPLOSIVES WORKER Start Date: 04/04/15 Status: Ordered Results Patient Viewable Results Most recent to oldest [Reference 1 2 3 Range]: FIO2 100 % 55 % 55 % (08/06/16 2:24 AM) (08/04/16 11:33 PM) (08/04/16 9:30 PM) WBC [4.8-10.8 thou/mm3] 10.3 thou/mm3 (08/05/16 5:33 AM) RBC [4.20-5.40 Mil/mm3] 5.30 Mil/mm3 (08/05/16 5:33 AM) Hgb [12.0-16.0 g/dL] 15.2 g/dL (08/05/16 5:33 AM) Hct [37.0-47.0 %] 44.9 % (08/05/16 5:33 AM) MCV [80.0-94.0 fL] 84.7 fL (08/05/16:33 AM) MCH [25.0-38.0 pg/cell] 28.7 pg/cell (08/05/16 5:33 AM) MCHC [31.0-37.0 g/dL] 33.9 g/dL (08/05/16 5:33 AM) RDW [1.0-48.0 fL] 44.8 fL (08/05/16 5:33 AM) Platelet [130-400 thou/mm3] 254 thou/mm3 (08/05/16 5:33 AM) Neutrophils % Auto [50.0-75.0 %] 50.2 % (08/05/16 5:33 AM) Immature Granulocyte Auto 0.3 % [0.1-2.0 %] (08/05/16 5:33 AM) Lymphocytes % Auto [15.0-41.0 %] 42.1 % *HI* (08/05/16 5:33 AM) Monocytes % Auto [2.0-10.0 %] 6.6 % (08/05/16 5:33 AM) Eosinophils % Auto [0.0-6.0 %] 0.7 % (08/05/16 5:33 AM) Basophil % Auto [0.0-1.0 %] 0.1 % (08/05/16 5:33 AM) Neutrophils Absolute [1.5-5.9 5.2 thou/mm3 thou/mm3] (08/05/16 5:33 AM) Immature Gran Absolute 0.03 thou/mm3 [0.01-0.03 thou/mm3] (08/05/16 5:33 AM) Lymphocytes Absolute [1.5-4.0 4.3 thou/mm3 thou/mm3] *HI* (08/05/16 5:33 AM) Monocytes Absolute [0.0-0.9 0.7 thou/mm3 thou/mm3] (08/05/16 5:33 AM) Eosinophil Absolute [0.0-0.7 0.1 thou/mm3 thou/mm3] (08/05/16 5:33 AM) Basophil Absolute [0.0-0.2 0.0 thou/mm3 thou/mm3] (08/05/16 5:33 AM) INR [0.9-1.1 INR] 1.1 INR (08/05/16 5:33 AM) PTT [22.7-35.2 seconds] 28.0 seconds (08/05/16 5:33 AM) Sodium Lvl [135-144 mEq/L] 136 mEq/L 138 mEq/L 139 mEq/L (08/09/16 5:57 AM) (08/08/16 4:46 AM) (08/07/16 4:33 AM) Potassium Lvl [3.3-4.8 mEq/L] 4.2 mEq/L 3.8 mEq/L 3.8 mEq/L (08/09/16 5:57 AM) (08/08/16 4:46 AM) (08/07/16 4:33 AM) Chloride Lvl [98-107 mEq/L] 94 mEq/L 96 mEq/L 97 mEq/L *LOW* *LOW* *LOW* (08/09/16 5:57 AM) (08/08/16 4:46 AM) (08/07/16 4:33 AM) Bicarbonate Lvl [22-30 mmol/L] 26 mmol/L 27 mmol/L 28 mmol/L (08/09/16 5:57 AM) (08/08/16 4:46 AM) (08/07/16 4:33 AM) Anion Gap [10.0-20.0] 20.2 18.8 17.8 *HI* (08/08/16 4:46 AM) (08/07/16 4:33 AM) (08/09/16 5:57 AM) Glucose Lvl [70-108 mg/dL] 213 mg/dL 185 mg/dL 231 mg/dL *HI* *HI* *HI* (08/09/16 5:57 AM) (08/08/16 4:46 AM) (08/07/16 4:33 AM) BUN [7-21 mg/dL] 24 mg/dL 22 mg/dL 20 mg/dL *HI* *HI* (08/07/16 4:33 AM) (08/09/16 5:57 AM) (08/08/16 4:46 AM) Creatinine Lvl [0.50-1.20 mg/dL] 0.89 mg/dL 0.89 mg/dL 0.90 mg/dL (08/09/16 5:57 AM) (08/08/16 4:46 AM) (08/07/16 4:33 AM) BUN/Creat Ratio 27.0 24.7 22.2 *NA* *NA* *NA* (08/09/16 5:57 AM) (08/08/16 4:46 AM) (08/07/16 4:33 AM) eGFR AA [>=60] >60 >60 >60 (08/09/16 5:57 AM) (08/08/16 4:46 AM) (08/07/16 4:33 AM) eGFR ALBAN [>=60] >60 >60 >60 (08/09/16 5:57 AM) (08/08/16 4:46 AM) (08/07/16 4:33 AM) Calcium Lvl [8.6-10.2 mg/dL] 8.9 mg/dL 8.6 mg/dL 8.1 mg/dL (08/09/16 5:57 AM) (08/08/16 4:46 AM) *LOW* (08/07/16 4:33 AM) Total Protein [6.4-8.3 g/dL] 7.0 g/dL (08/05/16 5:33 AM) Albumin Lvl [3.5-5.2 g/dL] 4.0 g/dL (08/05/16 5:33 AM) Globulin 3.0 *NA* (08/05/16 5:33 AM) A/G Ratio [0.9-1.8] 1.3 (08/05/16 5:33 AM) Bilirubin Total [0.1-1.0 mg/dL] 0.6 mg/dL (08/05/16 5:33 AM) Bilirubin Direct [0.0-0.3 mg/dL] 0.1 mg/dL (08/05/16 5:33 AM) Alkaline Phosphatase [39-129 44 unit/L unit/L] (08/05/16 5:33 AM) AST [0-39 unit/L] 41 unit/L *HI* (08/05/16 5:33 AM) ALT [0-40 unit/L] 30 unit/L (08/05/16 5:33 AM) LDH [94-250 unit/L] 220 unit/L (08/05/16 5:33 AM) Magnesium Lvl [1.6-2.4 mg/dL] 2.0 mg/dL 1.5 mg/dL 1.7 mg/dL (08/08/16 4:46 AM) *LOW* (08/06/16 4:52 AM) (08/07/16 4:33 AM) Phosphorus Lvl [2.7-4.5 mg/dL] 4.8 mg/dL *HI* (08/05/16 5:33 AM) Glycated Hemoglobin [4.8-6.0 %] 9.2 % *HI* (08/05/16 5:33 AM) Estimated Average Glucose 217 mg/dL *NA* (08/05/16 5:33 AM) Cholesterol Total [0-200 mg/dL] 221 mg/dL *HI* (08/05/16 5:33 AM) Triglyceride [0-199 mg/dL] 179 mg/dL (08/05/16 5:33 AM) HDL Cholesterol [40-100 mg/dL] 38 mg/dL *LOW* (08/05/16 5:33 AM) LDL Cholesterol (Direct) [0-129 162 mg/dL mg/dL] *HI* (08/05/16 5:33 AM) Non HDL Cholesterol [0-159 183 mg/dL mg/dL] *HI* (08/05/16 5:33 AM) B-type Natriuretic Peptide [0-99 191 pg/mL pg/mL] *HI* (08/05/16 5:33 AM) Troponin-I [0.00-0.04 ng/mL] 0.03 ng/mL 0.03 ng/mL (08/05/16 5:33 AM) (08/04/16 3:58 PM) Free T4 [0.89-1.76 ng/dL] 1.34 ng/dL (08/05/16 5:33 AM) TSH [0.50-3.00 mIU/L] 5.76 mIU/L *HI* (08/05/16 5:33 AM) Vitamin B12 Lvl [211-911 pg/mL] 254 pg/mL (08/05/16 5:33 AM) Folate Lvl, Serum [>=5.5 ng/mL] 16.5 ng/mL (08/05/16 5:33 AM) Ferritin Lvl [10-291 ng/mL] 57 ng/mL (08/05/16 5:33 AM) Creatinine, [place] [facility] 33.6 mg/dL *NA* (08/04/16 8:30 PM) Tot Prot, [place] [facility] [1-14 mg/dL] 8 mg/dL (08/04/16 8:30 PM) Microalbumin, Ur <12 mg/L *NA* (08/04/16 8:30 PM) Creatinine, Urine [place] 33.6 mg/dL *NA* (08/04/16 8:30 PM) Ur Microalb/Creat Ratio [0-29 <36 mg/g Cr mg/g Cr] *HI* (08/04/16 8:30 PM) Estimated Creatinine Clearance 75.33 mL/min 74.49 mL/min 69.84 mL/min (08/08/16 5:14 AM) (08/07/16 5:00 AM) (08/06/16 5:27 AM) UA Color Straw *NA* (08/04/16 8:30 PM) Urine Clarity Clear *NA* (08/04/16 8:30 PM) Specific [place] [1.000-1.060] 1.011 (08/04/16 8:30 PM) Urine pH [5-8] 5 (08/04/16 8:30 PM) Ketones Negative (08/04/16 8:30 PM) Bilirubin [Negative] Negative (08/04/16 8:30 PM) Urine Protein [Negative] Negative (08/04/16 8:30 PM) Glucose [Negative] Negative (08/04/16 8:30 PM) Urine HGB [Negative] 3+ *ABN* (08/04/16 8:30 PM) Urobilinogen <2.0 *NA* (08/04/16 8:30 PM) Nitrite [Negative] Negative (08/04/16 8:30 PM) Leuk Esterase [Negative] Negative (08/04/16 8:30 PM) UA Ascorbic Acid [Negative] Negative (08/04/16 8:30 PM) Urine WBC [0-5] 0-5 (08/04/16 8:30 PM) Urine RBC [0-2] >50 *ABN* (08/04/16 8:30 PM) Squamous Epi [0-5] None Seen (08/04/16 8:30 PM) Mucus Trace (08/04/16 8:30 PM) Hyaline Casts 0-2 (08/04/16 8:30 PM) Whole Blood Glucose [70-108 230 mg/dL1 233 mg/dL2 217 mg/dL3 mg/dL] *HI* *HI* *HI* (08/09/16 11:09 AM) (08/09/16 7:15 AM) (08/08/16 8:45 PM) 1Result Comment: Notified Nurse~Manager User Interface: [id number] Green [id number] Comment : Notified Nurse~Manager User Interface: [id number] Green [id number] Comment: Notified Nurse~TAYLOR~Manager User Interface: [id number] Stefano Muir [employer] Immunizations Vaccine Date Refusal Reason influenza virus vaccine, inactivated 04/03/16 pneumococcal 23-polyvalent vaccine 08/05/16 Procedures Procedure Date Related Diagnosis Body Site Arthroscopy Knee (Left, Knee L)1 04/06/15 Appendectomy Arthroscopy of knee2 Hysterectomy Mastectomy3 Thyroidectomy4 1auto-populated from documented surgical [id number] lymph nodes [id number] Social History No data available for this section Assessment and Plan No data available for this section
--- OUTSIDE RECORDS SUMMARY | 2017-01-03 23:37 | XMS REPORT | Summary of Care ---
:1955 Author Organization [facility] Address [address] [place] [phone]- Care Team Providers Name Role Phone Celena Falcon Primary Care Physician Encounter Date(s): 08/27/16 - 08/27/[address] [address] Discharge Disposition: 01 Discharged to Home or Self Care Attending Physician: Ronald Flores MD Admitting Physician: Ronald Flores MD Vital Signs No data available for this section Problem List Condition Effective Dates Status Health [...] # 30 tab(s), 0 Refill(s), Start Date: 03/04/17 15:41:00 PHOTOGRAPHER NEWS Start Date: 08/04/16 Status: Orderedaspirin 81 mg oral delayed release tablet 1 tab(s), Oral, Daily, # 30 tab(s), 0 Refill(s), Start Date: 08/09/16 12:48:00 PHOTOGRAPHER NEWS Start Date: 08/09/16 Status: Orderedatorvastatin 40 mg oral tablet 1 tab(s), Oral, HS, # 30 tab(s), 0 Refill(s), Start Date: 08/09/16 12:49:00 PHOTOGRAPHER NEWS Start Date: 08/09/16 Status: Orderedcarvedilol 3.125 mg oral tablet 1 tab(s), Oral, BID, # 60 tab(s), 0 Refill(s), Start Date: 08/09/16 12:49:00 PHOTOGRAPHER NEWS Start Date: 08/09/16 Stop Date: 08/20/16 Status: Discontinuedcarvedilol 6.25 mg oral tablet 1 tab(s), Oral, BID, # 60 tab(s), 3 Refill(s), Start Date: 08/20/16 16:26:40 CDT , Pharmacy: [place], [place] Start Date: 08/20/16 Status: Orderedcarvedilol 6.25 mg oral tablet 1 tab(s), Oral, BID, # 60 tab(s), 3 Refill(s), Start Date: 08/20/16 11:20:00 CDT , other reason (Rx) Start Date: 08/20/16 Stop Date: 08/20/16 Status: Completeddigoxin 125 mcg (0.125 mg) oral tablet 1 tab(s), Oral, Daily, # 30 tab(s), 0 Refill(s), Start Date: 08/09/16 12:49:00 PHOTOGRAPHER NEWS Start Date: 08/09/16 Status: OrderedDULoxetine 60 mg [...] cap(s), 0 Refill(s), Start Date: 08/09/16 12:49:00 PHOTOGRAPHER NEWS Start Date: 08/09/16 Stop Date: 08/20/16 Status: DiscontinuedLasix 40 mg oral tablet 1 tab(s), Oral, BID, # 28 tab(s), 0 Refill(s), Start Date: 08/09/16 12:49:00 PHOTOGRAPHER NEWS Start Date: 08/09/16 Stop Date: 08/23/16 Status: Orderedlevothyroxine 50 mcg (0.05 mg) oral tablet 1 tab(s), Oral, Daily, 0 Refill(s), Start Date: 03/25/15 13:37:00 CDT Start Date: 03/25/15 Status: Orderedlisinopril 2.5 mg oral tablet 1 tab(s), Oral, Daily, # 90 tab(s), 3 Refill(s), Start Date: 08/21/16 12:57:17 CDT, Pharmacy: [place], [place] Start Date: 08/21/16 Status: Orderedlisinopril 2.5 mg oral tablet 1 tab(s), Oral, Daily, X 30 days, # 30 tab(s), 0 Refill(s), Start Date: 12:50:00 PHOTOGRAPHER NEWS Start Date: 08/09/16 Stop Date: 08/21/16 Status: Completedlisinopril-hydrochlorothiazide 20 mg-12.5 mg oral tablet 1 tab(s), [...] 0 Refill(s), Start Date: 08/09/16 12:49: 00 PHOTOGRAPHER NEWS Start Date: 08/09/16 Status: OrderedVictoza 1.2 mg, Subcutaneous, Daily, 0 Refill(s), Start Date: 03/27/15 12:49:00 CDT Start Date: 03/27/15 Status: OrderedXanax 0.25 mg oral tablet 1 tab(s), Oral, TID, PRN for anxiety, 0 Refill(s), Start Date: 04/04/15 11:59: 00 PHOTOGRAPHER NEWS Start Date: 04/04/15 Status: Ordered Results Patient Viewable Results Most recent to oldest [Reference Range]: 1 Sodium Lvl [135-144 mEq/L] 134 mEq/L *LOW* (08/27/16 9:28 AM) Potassium Lvl [3.3-4.8 mEq/L] 3.6 mEq/L (08/27/16 9:28 AM) Chloride Lvl [98-107 mEq/L] 88 mEq/L *LOW* (08/27/16 9:28 AM) Bicarbonate Lvl [22-30 mmol/L] 30 mmol/L (08/27/16 9:28 AM) Anion Gap [10.0-20.0] 19.6 (08/27/16 9:28 AM) Glucose Lvl [70-108 mg/dL] 625 mg/dL1 *CRIT* (08/27/16 9:28 AM) BUN [7-21 mg/dL] 14 mg/dL (08/27/16 9:28 AM) Creatinine Lvl [0.50-1.20 mg/dL] 0.84 mg/dL (08/27/16 9:28 AM) BUN/Creat Ratio 16.7 *NA* (08/27/16 9:28 AM) eGFR AA [>=60] >60 (08/27/16 9:28 AM) eGFR ALBAN [>=60] >60 (08/27/16 9:28 AM) Calcium Lvl [8.6-10.2 mg/dL] 8.8 mg/dL (08/27/16 9:28 AM) Estimated Creatinine Clearance 76.02 mL/min (08/27/16 10:08 AM) 1Result Comment: Verified Results called to and read back by azalea at 2016 10:40:00 AM CDT by tp Immunizations Vaccine Date Refusal Reason influenza virus vaccine, inactivated 04/03/16 pneumococcal 23-polyvalent vaccine 08/05/16 Procedures Procedure Date Related Diagnosis Body Site Arthroscopy Knee (Left, Knee L)1 04/06/15 Appendectomy Arthroscopy of knee2 Hysterectomy Mastectomy3 Thyroidectomy4 1auto-populated from documented surgical [id number] lymph nodes [id number] Social History No data available for this section Assessment and Plan No data available for this section
--- OUTSIDE RECORDS SUMMARY | 2017-01-03 23:37 | XMS REPORT | Summary of Care ---
:1955 Author Organization [facility] Address [address] [place] [address] [id number] [place] [address] Care Team Providers Name Role Phone EzekielCelena Elva Primary Care Physician Encounter Date(s): 09/20/16 - 09/20/16 [facility] [address] [id number] Discharge Disposition: 01 Discharged to Home or Self Care Attending Physician: Ronald Flores MD Referring Physician: Ronald Flores MD Vital Signs Most recent to oldest [Reference Range]: 1 Peripheral Pulse Rate [60-100 bpm] 88 bpm (09/20/16 10:58 AM) Respiratory Rate [12-20 br/min] 16 br/min (09/20/16 10:58 AM) SpO2 [90-100 %] 98 % (09/20/16 10:58 AM) SpO2 Location Left hand (09/20/16 10:58 AM) Blood Pressure [90-130/60-90 mmHg] 110/58mmHg (09/20/16 10:58 AM) Mean Arterial Pressure, Cuff 75 mmHg (09/20/16 10:58 AM) Most recent to oldest [Reference Range]: 1 Height/Length Measured 168 cm (09/20/16 10:58 AM) Weight Dosing 80.00 kg1 (09/20/16 11:06 AM) Weight Measured 80 kg (09/20/16 10:58 AM) BSA Measured 1.9 m2 (09/20/16 10:58 AM) Body Mass Index Measured 28.34 kg/m2 (09/20/16 10:58 AM) 1Result Comment: This result was because the dosing weight was either not entered or it is>30 days old. 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 Start Date: 08/04/16 Status: Orderedaspirin 81 mg oral delayed release tablet 1 tab(s), Oral, Daily, # 30 tab(s), 0 Refill(s), Start Date: 08/09/16 12:48:00 PONY CYLINDER PR[employer] OPERATOR Start Date: 08/09/16 Status: Orderedatorvastatin 40 mg oral tablet 1 tab(s), Oral, HS, # 30 tab(s), 0 Refill(s), Start Date: 08/09/16 12:49:00 PONY CYLINDER PRESS OPERATOR Start Date: 08/09/16 Status: Orderedcarvedilol 3.125 mg oral tablet 1 tab(s), Oral, BID, # 60 tab(s), 0 Refill(s), Start Date: 08/09/16 12:49:00 PONY CYLINDER PRESS OPERATOR Start Date: 08/09/16 Stop Date: 08/20/16 Status: Discontinuedcarvedilol 6.25 mg oral tablet 1 tab(s), Oral, BID, # 60 tab(s), 3 Refill(s), Start Date: 08/20/16 16:26:40 CDT , Pharmacy: [place], [place] Start Date: 08/20/16 Status: Orderedcarvedilol 6.25 mg oral tablet 1 tab(s), Oral, BID, # 60 tab(s), 3 Refill(s), Start Date: 08/20/16 11:20:00 CDT , other reason (Rx) Start Date: 08/20/16 Stop Date: 08/20/16 Status: Completeddigoxin 125 mcg (0.125 mg) oral tablet 1 tab(s), Oral, Daily, # 30 tab(s), 0 Refill(s), Start Date: 08/09/16 12:49:00 [employer] Start Date: 08/09/16 Status: OrderedDULoxetine 60 mg [...] cap(s), 0 Refill(s), Start Date: 08/09/16 12:49:00 [employer] Start Date: 08/09/16 Stop Date: 08/20/16 Status: DiscontinuedLasix 40 mg oral tablet 1 tab(s), Oral, BID, # 28 tab(s), 0 Refill(s), Start Date: 08/09/16 12:49:00 [employer] Start Date: 08/09/16 Stop Date: 09/20/16 Status: [...] Refill(s), Start Date: 08/21/16 12:57:17 CDT, Pharmacy: [place], [place] Start Date: 08/21/16 Status: Orderedlisinopril 2.5 mg oral tablet 1 tab(s), Oral, Daily, X 30 days, # 30 tab(s), 0 Refill(s), Start Date: 12:50:00 [employer] Start Date: 08/09/16 Stop Date: 08/21/16 Status: [...] 0 Refill(s), Start Date: 08/09/16 12:49: 00 [employer] Start Date: 08/09/16 Stop Date: 09/20/16 Status: [...] 0 Refill(s), Start Date: 04/04/15 11:59: 00 [employer] Start Date: 04/04/15 Status: Ordered Results Patient Viewable Results Most recent to oldest [Reference Range]: 1 FIO2 21 % (09/20/16 10:58 AM) Immunizations Vaccine Date Refusal Reason influenza virus vaccine, inactivated 04/03/16 pneumococcal 23-polyvalent vaccine 08/05/16 Procedures Procedure Date Related Diagnosis Body Site Arthroscopy Knee (Left, Knee L)1 04/06/15 Appendectomy Arthroscopy of knee2 Hysterectomy Mastectomy3 Thyroidectomy4 1auto-populated from documented surgical [id number] lymph nodes [id number] Social History No data available for this section Assessment and Plan No data available for this section
--- OUTSIDE RECORDS SUMMARY | 2017-01-03 23:37 | XMS REPORT | Summary of Care ---
:1955 Author Organization [facility] Address [address] [place] [address] [address] [place] [address] Care Team Providers Name Role Phone EzekielCelena Elva Primary Care Physician Encounter Date(s): 08/20/16 - 08/20/16 [facility] [address] [address] Discharge Disposition: 01 Discharged to Home or Self Care Attending Physician: Ronald Flores MD Referring Physician: Ronald Flores MD Vital Signs Most recent to oldest [Reference Range]: 1 Peripheral Pulse Rate [60-100 bpm] 104 bpm *HI* (08/20/16 11:00 AM) Blood Pressure [90-130/60-90 mmHg] 104/61mmHg (08/20/16 11:00 AM) Mean Arterial Pressure, Cuff 75 mmHg (08/20/16 11:00 AM) Most recent to oldest [Reference Range]: 1 Height/Length Measured 168 cm (08/20/16 11:00 AM) Weight Dosing 77.50 kg1 (08/20/16 11:05 AM) Weight Measured 77.5 kg (08/20/16 11:00 AM) BSA Measured 1.87 m2 (08/20/16 11:00 AM) Body Mass Index Measured 27.46 kg/m2 (08/20/16 11:00 AM) 1Result Comment: This result was because the dosing weight was either not entered or it is>30 days old. 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 Start Date: 08/09/16 Status: Orderedatorvastatin 40 mg oral tablet 1 tab(s), Oral, HS, # 30 tab(s), 0 Refill(s), Start Date: 08/09/16 12:49:00 FLOOR LAYER Start Date: 08/09/16 Status: Orderedcarvedilol 3.125 mg oral tablet 1 tab(s), Oral, BID, # 60 tab(s), 0 Refill(s), Start Date: 08/09/16 12:49:00 FLOOR LAYER Start Date: 08/09/16 Stop Date: 08/20/16 Status: Discontinuedcarvedilol 6.25 mg oral tablet 1 tab(s), Oral, BID, # 60 tab(s), 3 Refill(s), Start Date: 08/20/16 16:26:40 CDT , Pharmacy: [place], [place] Start Date: 08/20/16 Status: Orderedcarvedilol 6.25 mg oral tablet 1 tab(s), Oral, BID, # 60 tab(s), 3 Refill(s), Start Date: 08/20/16 11:20:00 CDT , other reason (Rx) Start Date: 08/20/16 Stop Date: 08/20/16 Status: Completeddigoxin 125 mcg (0.125 mg) oral tablet 1 tab(s), Oral, Daily, # 30 tab(s), 0 Refill(s), Start Date: 08/09/16 12:49:00 FLOOR 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 Start Date: 08/09/16 Status: OrderedDULoxetine 60 mg [...] cap(s), 0 Refill(s), Start Date: 08/09/16 12:49:00 FLOOR LAYER Start Date: 08/09/16 Stop Date: 08/20/16 Status: DiscontinuedLasix 40 mg oral tablet 1 tab(s), Oral, BID, # 28 tab(s), 0 Refill(s), Start Date: 08/09/16 12:49:00 FLOOR LAYER Start Date: 08/09/16 Stop Date: 08/23/16 Status: Orderedlevothyroxine 50 mcg (0.05 mg) oral tablet 1 tab(s), Oral, Daily, 0 Refill(s), Start Date: 03/25/15 13:37:00 CDT Start Date: 03/25/15 Status: Orderedlisinopril 2.5 mg oral tablet 1 tab(s), Oral, Daily, # 30 tab(s), 0 Refill(s), Start Date: 08/09/16 12:50:00 FLOOR LAYER Start Date: 08/09/16 Stop Date: 09/08/16 Status: [...] 0 Refill(s), Start Date: 08/09/16 12:49: 00 FLOOR LAYER Start Date: 08/09/16 Status: OrderedVictoza 1.2 mg, Subcutaneous, Daily, 0 Refill(s), Start Date: 03/27/15 12:49:00 CDT Start Date: 03/27/15 Status: OrderedXanax 0.25 mg oral tablet 1 tab(s), Oral, TID, PRN for anxiety, 0 Refill(s), Start Date: 04/04/15 11:59: 00 FLOOR LAYER Start Date: 04/04/15 Status: Ordered Results No data available for this section Immunizations Vaccine Date Refusal Reason influenza virus vaccine, inactivated 04/03/16 pneumococcal 23-polyvalent vaccine 08/05/16 Procedures Procedure Date Related Diagnosis Body Site Arthroscopy Knee (Left, Knee L)1 04/06/15 Appendectomy Arthroscopy of knee2 Hysterectomy Mastectomy3 Thyroidectomy4 1auto-populated from documented surgical [id number] lymph nodes [id number] Social History No data available for this section Assessment and Plan No data available for this section
--- OUTSIDE RECORDS SUMMARY | 2017-01-03 23:38 | XMS REPORT | Summary of Care ---
:1955 Author Organization [facility] Address [address] [place] [address] [address] [place] [address] Care Team Providers Name Role Phone EzekielCelena Primary Care Physician Encounter Date(s): 10/09/16 - 10/09/16 [facility] [address] 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 [employer] Start Date: 08/09/16 Status: Orderedatorvastatin 40 mg oral tablet 1 tab(s), Oral, HS, # 30 tab(s), 0 Refill(s), Start Date: 08/09/16 12:49:00 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 [employer] Start Date: 08/09/16 Status: Orderedcarvedilol 3.125 mg oral tablet 1 tab(s), Oral, BID, # 60 tab(s), 0 Refill(s), Start Date: 08/09/16 12:49:00 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 Start Date: 08/09/16 Stop Date: 08/20/16 Status: Discontinuedcarvedilol 6.25 mg oral tablet 1 tab(s), Oral, BID, # 60 tab(s), 3 Refill(s), Start Date: 08/20/16 16:26:40 CDT , Pharmacy: [place], [place] Start Date: 08/20/16 Status: Orderedcarvedilol 6.25 mg oral tablet 1 tab(s), Oral, BID, # 60 tab(s), 3 Refill(s), Start Date: 08/20/16 11:20:00 CDT , other reason (Rx) Start Date: 08/20/16 Stop Date: 08/20/16 Status: Completeddigoxin 125 mcg (0.125 mg) oral tablet 1 tab(s), Oral, Daily, # 30 tab(s), 0 Refill(s), Start Date: 08/09/16 12:49:00 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 Start Date: 08/09/16 Status: OrderedDULoxetine 60 mg [...] cap(s), 0 Refill(s), Start Date: 08/09/16 12:49:00 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 Start Date: 08/09/16 Stop Date: 08/20/16 Status: DiscontinuedLasix 40 mg oral tablet 1 tab(s), Oral, BID, # 28 tab(s), 0 Refill(s), Start Date: 08/09/16 12:49:00 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 Start Date: 08/09/16 Stop Date: 09/20/16 Status: [...] Refill(s), Start Date: 08/21/16 12:57:17 CDT, Pharmacy: [place], [place] Start Date: 08/21/16 Status: Orderedlisinopril 2.5 mg oral tablet 1 tab(s), Oral, Daily, X 30 days, # 30 tab(s), 0 Refill(s), Start Date: 12:50:00 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 Start Date: 08/09/16 Stop Date: 08/21/16 Status: [...] 0 Refill(s), Start Date: 08/09/16 12:49: 00 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 Start Date: 08/09/16 Stop Date: 09/20/16 Status: [...] 0 Refill(s), Start Date: 04/04/15 11:59: 00 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 Start Date: 04/04/15 Status: Ordered Results No data available for this section Immunizations Vaccine Date Refusal Reason influenza virus vaccine, inactivated 04/03/16 pneumococcal 23-polyvalent vaccine 08/05/16 Procedures Procedure Date Related Diagnosis Body Site Arthroscopy Knee (Left, Knee L)1 04/06/15 Appendectomy Arthroscopy of knee2 Hysterectomy Mastectomy3 Thyroidectomy4 1auto-populated from documented surgical [id number] lymph nodes [id number] Social History No data available for this section Assessment and Plan No data available for this section
--- OUTSIDE RECORDS SUMMARY | 2017-01-03 23:38 | XMS REPORT | Summary of Care ---
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: 08/04/16 Status: Orderedaspirin 81 mg oral delayed release tablet 1 tab(s), Oral, Daily, # 30 tab(s), 0 Refill(s), Start Date: 08/09/16 12:48:00 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 Start Date: 08/09/16 Status: Orderedatorvastatin 40 mg oral tablet 1 tab(s), Oral, HS, # 30 tab(s), 0 Refill(s), Start Date: 08/09/16 12:49:00 RATE SETTER Start Date: 08/09/16 Status: Orderedcarvedilol 3.125 mg oral tablet 1 tab(s), Oral, BID, # 60 tab(s), 0 Refill(s), Start Date: 08/09/16 12:49:00 RATE SETTER Start Date: 08/09/16 Stop Date: 08/20/16 Status: Discontinuedcarvedilol 6.25 mg oral tablet 1 tab(s), Oral, BID, # 60 tab(s), 3 Refill(s), Start Date: 08/20/16 16:26:40 CDT , Pharmacy: [place], [place] Start Date: 08/20/16 Status: Orderedcarvedilol 6.25 mg oral tablet 1 tab(s), Oral, BID, # 60 tab(s), 3 Refill(s), Start Date: 08/20/16 11:20:00 CDT , other reason (Rx) Start Date: 08/20/16 Stop Date: 08/20/16 Status: Completeddigoxin 125 mcg (0.125 mg) oral tablet 1 tab(s), Oral, Daily, # 30 tab(s), 0 Refill(s), Start Date: 08/09/16 12:49:00 RATE SETTER Start Date: 08/09/16 Status: OrderedDULoxetine 60 mg [...] cap(s), 0 Refill(s), Start Date: 08/09/16 12:49:00 RATE SETTER Start Date: 08/09/16 Stop Date: 08/20/16 Status: DiscontinuedLasix 40 mg oral tablet 1 tab(s), Oral, BID, # 28 tab(s), 0 Refill(s), Start Date: 08/09/16 12:49:00 RATE SETTER Start Date: 08/09/16 Stop Date: 08/23/16 Status: Orderedlevothyroxine 50 mcg (0.05 mg) oral tablet 1 tab(s), Oral, Daily, 0 Refill(s), Start Date: 03/25/15 13:37:00 CDT Start Date: 03/25/15 Status: Orderedlisinopril 2.5 mg oral tablet 1 tab(s), Oral, Daily, # 30 tab(s), 0 Refill(s), Start Date: 08/09/16 12:50:00 RATE SETTER Start Date: 08/09/16 Stop Date: 09/08/16 Status: [...] 0 Refill(s), Start Date: 08/09/16 12:49: 00 RATE SETTER Start Date: 08/09/16 Status: OrderedVictoza 1.2 mg, Subcutaneous, Daily, 0 Refill(s), Start Date: 03/27/15 12:49:00 CDT Start Date: 03/27/15 Status: OrderedXanax 0.25 mg oral tablet 1 tab(s), Oral, TID, PRN for anxiety, 0 Refill(s), Start Date: 04/04/15 11:59: 00 RATE SETTER Start Date: 04/04/15 Status: Ordered Results Patient Viewable Results Most recent to oldest [Reference Range]: 1 Sodium Lvl [135-144 mEq/L] 129 mEq/L *LOW* (08/20/16 12:05 PM) Potassium Lvl [3.3-4.8 mEq/L] 4.2 mEq/L (08/20/16 12:05 PM) Chloride Lvl [98-107 mEq/L] 82 mEq/L *LOW* (08/20/16 12:05 PM) Bicarbonate Lvl [22-30 mmol/L] 26 mmol/L (08/20/16 12:05 PM) Anion Gap [10.0-20.0] 25.2 *HI* (08/20/16 12:05 PM) Glucose Lvl [70-108 mg/dL] 543 mg/dL1 *CRIT* (08/20/16 12:05 PM) BUN [7-21 mg/dL] 35 mg/dL *HI* (08/20/16 12:05 PM) Creatinine Lvl [0.50-1.20 mg/dL] 1.42 mg/dL *HI* (08/20/16 12:05 PM) BUN/Creat Ratio 24.6 *NA* (08/20/16 12:05 PM) eGFR AA [>=60] 46 *LOW* (08/20/16 12:05 PM) eGFR ALBAN [>=60] 38 *LOW* (08/20/16 12:05 PM) Calcium Lvl [8.6-10.2 mg/dL] 9.5 mg/dL (08/20/16 12:05 PM) Estimated Creatinine Clearance 44.97 mL/min (08/20/16 12:54 PM) 1Result Comment: Verified Results called to and read back by reagan at 2016 1:13:21 PM CDTby tp Immunizations Vaccine Date Refusal Reason influenza virus vaccine, inactivated 04/03/16 pneumococcal 23-polyvalent vaccine 08/05/16 Procedures Procedure Date Related Diagnosis Body Site Arthroscopy Knee (Left, Knee L)1 04/06/15 Appendectomy Arthroscopy of knee2 Hysterectomy Mastectomy3 Thyroidectomy4 1auto-populated from documented surgical [id number] lymph nodes [id number] Social History No data available for this section Assessment and Plan No data available for this section
--- OUTSIDE RECORDS SUMMARY | 2017-01-03 23:38 | XMS REPORT | Summary of Care ---
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 Start Date: 08/09/16 Status: Orderedatorvastatin 40 mg oral tablet 1 tab(s), Oral, HS, # 30 tab(s), 0 Refill(s), Start Date: 08/09/16 12:49:00 DAY 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 Start Date: 08/09/16 Status: Orderedcarvedilol 3.125 mg oral tablet 1 tab(s), Oral, BID, # 60 tab(s), 0 Refill(s), Start Date: 08/09/16 12:49:00 DAY 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 Start Date: 08/09/16 Stop Date: 08/20/16 Status: Discontinuedcarvedilol 6.25 mg oral tablet 1 tab(s), Oral, BID, # 60 tab(s), 3 Refill(s), Start Date: 08/20/16 16:26:40 CDT , Pharmacy: [place], [place] Start Date: 08/20/16 Status: Orderedcarvedilol 6.25 mg oral tablet 1 tab(s), Oral, BID, # 60 tab(s), 3 Refill(s), Start Date: 08/20/16 11:20:00 CDT , other reason (Rx) Start Date: 08/20/16 Stop Date: 08/20/16 Status: Completeddigoxin 125 mcg (0.125 mg) oral tablet 1 tab(s), Oral, Daily, # 30 tab(s), 0 Refill(s), Start Date: 08/09/16 12:49:00 DAY 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 Start Date: 08/09/16 Status: OrderedDULoxetine 60 mg [...] cap(s), 0 Refill(s), Start Date: 08/09/16 12:49:00 DAY 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 Start Date: 08/09/16 Stop Date: 08/20/16 Status: DiscontinuedLasix 40 mg oral tablet 1 tab(s), Oral, BID, # 28 tab(s), 0 Refill(s), Start Date: 08/09/16 12:49:00 DAY 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 Start Date: 08/09/16 Stop Date: 09/20/16 Status: [...] Refill(s), Start Date: 08/21/16 12:57:17 CDT, Pharmacy: [place], [place] Start Date: 08/21/16 Status: Orderedlisinopril 2.5 mg oral tablet 1 tab(s), Oral, Daily, X 30 days, # 30 tab(s), 0 Refill(s), Start Date: 12:50:00 DAY 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 Start Date: 08/09/16 Stop Date: 08/21/16 Status: [...] 0 Refill(s), Start Date: 08/09/16 12:49: 00 DAY 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 Start Date: 08/09/16 Stop Date: 09/20/16 Status: [...] 0 Refill(s), Start Date: 04/04/15 11:59: 00 DAY 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 Start Date: 04/04/15 Status: Ordered Results Patient Viewable Results Most recent to oldest [Reference Range]: 1 WBC [4.8-10.8 thou/mm3] 10.1 thou/mm3 (09/26/16 8:09 AM) RBC [4.20-5.40 Mil/mm3] 4.52 Mil/mm3 (09/26/16 8:09 AM) Hgb [12.0-16.0 g/dL] 13.3 g/dL (09/26/16:09 AM) Hct [37.0-47.0 %] 39.6 % (09/26/16:09 AM) MCV [80.0-94.0 fL] 87.6 fL (09/26/16:09 AM) MCH [25.0-38.0 pg/cell] 29.4 pg/cell (09/26/16:09 AM) MCHC [31.0-37.0 g/dL] 33.6 g/dL (09/26/16:09 AM) RDW [1.0-48.0 fL] 48.1 fL *HI* (09/26/16:09 AM) Platelet [130-400 thou/mm3] 194 thou/mm3 (09/26/16 8:09 AM) Neutrophils % Auto [50.0-75.0 %] 57.9 % (09/26/16 8:09 AM) Immature Granulocyte Auto [0.1-2.0 %] 0.2 % (09/26/16:09 AM) Lymphocytes % Auto [15.0-41.0 %] 31.9 % (09/26/16:09 AM) Monocytes % Auto [2.0-10.0 %] 9.0 % (09/26/16:09 AM) Eosinophils % Auto [0.0-6.0 %] 0.8 % (09/26/16:09 AM) Basophil % Auto [0.0-1.0 %] 0.2 % (09/26/16 8:09 AM) Neutrophils Absolute [1.5-5.9 thou/mm3] 5.8 thou/mm3 (09/26/16 8:09 AM) Immature Gran Absolute [0.01-0.03 thou/mm3] 0.02 thou/mm3 (09/26/16 8:09 AM) Lymphocytes Absolute [1.5-4.0 thou/mm3] 3.2 thou/mm3 (09/26/16 8:09 AM) Monocytes Absolute [0.0-0.9 thou/mm3] 0.9 thou/mm3 (09/26/16 8:09 AM) Eosinophil Absolute [0.0-0.7 thou/mm3] 0.1 thou/mm3 (09/26/16 8:09 AM) Basophil Absolute [0.0-0.2 thou/mm3] 0.0 thou/mm3 (09/26/16 8:09 AM) Sodium Lvl [135-144 mEq/L] 136 mEq/L (09/26/16 8:09 AM) Potassium Lvl [3.3-4.8 mEq/L] 3.8 mEq/L (09/26/16 8:09 AM) Chloride Lvl [98-107 mEq/L] 93 mEq/L *LOW* (09/26/16 8:09 AM) Bicarbonate Lvl [22-30 mmol/L] 29 mmol/L (09/26/16 8:09 AM) Anion Gap [10.0-20.0] 17.8 (09/26/16 8:09 AM) Glucose Lvl [70-108 mg/dL] 401 mg/dL *HI* (09/26/16 8:09 AM) BUN [7-21 mg/dL] 18 mg/dL (09/26/16 8:09 AM) Creatinine Lvl [0.50-1.20 mg/dL] 0.83 mg/dL (09/26/16 8:09 AM) BUN/Creat Ratio 21.7 *NA* (09/26/16 8:09 AM) eGFR AA [>=60] >60 (09/26/16 8:09 AM) eGFR ALBAN [>=60] >60 (09/26/16 8:09 AM) Calcium Lvl [8.6-10.2 mg/dL] 9.0 mg/dL (09/26/16 8:09 AM) Estimated Creatinine Clearance 78.08 mL/min (09/26/16 8:20 AM) Immunizations Vaccine Date Refusal Reason influenza virus vaccine, inactivated 04/03/16 pneumococcal 23-polyvalent vaccine 08/05/16 Procedures Procedure Date Related Diagnosis Body Site Arthroscopy Knee (Left, Knee L)1 04/06/15 Appendectomy Arthroscopy of knee2 Hysterectomy Mastectomy3 Thyroidectomy4 1auto-populated from documented surgical [id number] lymph nodes [id number] Social History No data available for this section Assessment and Plan No data available for this section
[2017-01-04] MEDS ORDERED: fentaNYL CITRATE/PF 50 MCG/ML AMPUL IV ONE (00:32)
[2017-01-04] MEDS ORDERED: METOCLOPRAMIDE HCL 5 MG/ML VIAL IV ONE (00:32)
[2017-01-04] MEDS ORDERED: METOCLOPRAMIDE HCL 5 MG/ML VIAL ONE (00:39)
[2017-01-04] MEDS ORDERED: MORPHINE SULFATE 4 MG/ML SYRG ONE (00:45)
[2017-01-04] MEDS ORDERED: MORPHINE SULFATE 4 MG/ML SYRG IV ONE (00:49)
[2017-01-04] MEDS ORDERED: ENOXAPARIN SODIUM 80 MG/0.8 ML DISP.SYRIN SC ONE ×2 (01:45→01:48)
[2017-01-04 01:51] LABS: Digoxin 0.7 ng/mL (0.5-2.0); Troponin I 0.026 ng/ml (0.00-0.10)
[2017-01-04] MEDS ORDERED: KETOROLAC TROMETHAMINE 15 MG/ML VIAL IV ONE (03:23)
--- NOTE | 2017-01-04 03:24 | HP ---
Chief Complaint - Chief Complaint Date of Service: 01/04/17 Time of Service: 03:24 Chief Complaint: chest pain History of Present Illness: Saumya is a 61 year old patient of Dr Quintero with a PMH of CHF (ef 10-15%, scheduled for bi-v ICD in the upcoming month, heart cath 09/2016 showing normal coronary arteries), LBBB, DM, hypothyroid, OA, right breast ca s/p mastectomy - treated with adriamycin who presented to the ER with c/o chest pain that worsened with palpation of the left anterior chest wall. denies dyspnea. denies recent uri, n/v, diaphoreisis or radiation of the chest pain. ER eval revealed cbc significant for wbc elevated at 13.1 with normal neutrophils. cmp significant for serum glucose of 213. troponin negative x2. bnp at 538. digoxin level at 0.7. d-dimer elevated at 0.75. Staff was unable to obtain an 18 gauge IV insertion on the patient so the ERP recommended the patient be admitted to observation for cp of unknown origin and undergo a V/Q scan in the morning. patient was given at dose of lovenox in the ER at 1 mg/kg. - Patient's Past Medical History Patient History - Medical: Anxiety, Diabetes Type 2, Hypothyroidism, Osteoarthritis Patient History - Cardiac/Respiratory: CHF, Hypertension, Hyperlipidemia Patient History - Cancer: Breast Patient History - Surgical Procedures: Appendectomy, Cancer Surgery, Hysterectomy, Orthopedic Patient History - Other: None - Family History Mother Family History - Medical: Diabetes Type 1 Family History - Cardiac/Respiratory: Myocardial Infarction Family History - Cancer: Lung - Social History Living Situations: spouse Abuse History: No History of abuse Psych History: Hx of Anxiety, Hx of Depression Smoking Status: Never smoker Alcohol Use: none Drug Use: none - Immunizations Immunizations Up to Date: Yes History of Influenza Vaccine: No Review Of Systems (GEN) - Review of Systems Generalized/Overall Review: Present: Malaise EENTM: Present: No Symptoms Reported Respiratory: Present: No Symptoms Reported Cardiac: Present: Chest Pain Abdominal: Present: No Symptoms Reported Genitourinary: Present: No Symptoms Reported Musculoskeletal: Present: No Symptoms Reported Neurological: Present: No Symptoms Reported Skin: Present: No Symptoms Reported Endocrine: Present: No Symptoms Reported Misc: All systems neg except as marked Allergies/Adverse Reactions: Allergies Allergy/AdvReac Type Severity Reaction Status Date / Time cephalexin Allergy Verified 01/04/17 03:53 sulfamethoxazole Allergy Verified 01/04/17 03:53 [From Bactrim] trimethoprim [From Bactrim] Allergy Verified 01/04/17 03:53 Home Medications: HOME MEDICATIONS Levothyroxine Sodium [Synthroid] 50 mcg PO DAILY 11/21/12 [Last Taken Unknown] metFORMIN HCL [Metformin HCl ER] 1,000 mg PO BID 11/21/12 [Last Taken Unknown] Duloxetine HCl [Cymbalta] 60 mg PO DAILY 08/26/14 [Last Taken Unknown] ALPRAZolam [Xanax] 0.25 mg PO TID PRN 08/04/16 [Last Taken Unknown] Anastrozole [Arimidex] 1 mg PO DAILY 10/02/16 [Last Taken Unknown] Aspirin [Mariaelena Chewable] 81 mg PO DAILY 10/02/16 [Last Taken Unknown] Atorvastatin Calcium [Lipitor] 40 mg PO HS 10/02/16 [Last Taken Unknown] Carvedilol [Coreg] 6.25 mg PO BID 10/02/16 [Last Taken Unknown] Cholecalciferol (Vitamin D3) [Vitamin D3] 5,000 unit PO DAILY 10/02/16 [Last Taken Unknown] Digoxin [Lanoxin] 0.125 mg PO DAILY 10/02/16 [Last Taken Unknown] Furosemide [Lasix] 40 mg PO DAILY 10/02/16 [Last Taken Unknown] Insulin Detemir [Levemir] 40 units SC QAM 10/02/16 [Last Taken Unknown] Insulin Detemir [Levemir] 42 units SC QPM 10/02/16 [Last Taken Unknown] Insulin Lispro [Humalog] 100 unit SQ TID 10/02/16 [Last Taken Unknown] Levofloxacin [Levaquin] 250 mg PO DAILY #3 tablet 10/02/16 [Last Taken Unknown] Lisinopril [Zestril] 2.5 mg PO DAILY 10/02/16 [Last Taken Unknown] Spironolactone [Aldactone] 25 mg PO DAILY 10/02/16 [Last Taken Unknown] Exam - Exam Vital Signs: Vital Signs - Last Taken Temp 37.2 C 01/03/17 22:44 Pulse 86 01/04/17 02:33 Resp 14 01/04/17 02:33 BP 118/63 01/04/17 02:33 Pulse Ox 97 01/04/17 02:33 Constitutional: Present: Alert, Oriented x3, Cooperative, No distress ENT Exam: Present: hearing grossly normal Eye Exam: bilateral eye: normal inspection Neck: Present: supple Breasts: Present: Exam deferred Respiratory: Present: lungs clear, normal breath sounds Cardiovascular/Chest: Present: normal peripheral pulses, regular rate, rhythm, no edema, no murmur, chest tender - left anterior Peripheral Pulses: carotid (R): 2+, carotid (L): 2+, dorsalis-pedis (R): 2+, dorsalis-pedis (L): 2+, radial (R): 2+, radial (L): 2+ Abdomen: Present: Normal bowel sounds, soft, nontender, nondistended /Rectal: Present: Exam deferred Extremity: Present: normal range of motion, non-tender, normal inspection Skin Exam: Present: normal color, warm/dry, no cyanosis Diagnostic Studies: Laboratory Results WBC 13.1 K/mm3 (4.0-10.5) H 01/03/17 23:05 RBC 4.61 M/mm3 (4.2-5.4) 01/03/17 23:05 Hgb 13.6 gm/dL (12.5-16.0) 01/03/17 23:05 Hct 39.2 % (37.0-47.0) 01/03/17 23:05 MCV 85.0 fl (78-100) 01/03/17 23:05 MCH 29.5 pg (27-31) 01/03/17 23:05 MCHC 34.7 g/dl (32-36) 01/03/17 23:05 RDW 13.2 % (11.5-14.0) 01/03/17 23:05 Plt Count 260 K/mm3 (150-450) 01/03/17 23:05 MPV 12.5 fl (6.0-9.5) H 01/03/17 23:05 Immature Gran % (Auto) 0.40 % (0.001-0.429) 01/03/17 23:05 Immature Gran # (Auto) 0.05 K/mm3 (0.000-0.0310) H 01/03/17 23:05 Neutrophils % 58.7 % (42-75.0) 01/03/17 23:05 Lymphocytes % 33.2 % (20-51) 01/03/17 23:05 Monocytes % 6.3 % (0.0-9) 01/03/17 23:05 Eosinophils % 1.2 % (0.0-3.0) 01/03/17 23:05 Basophils % 0.2 % (0.0-1.0) 01/03/17 23:05 Nucleated RBC % 0.0 k/mm3 (0-1) 01/03/17 23:05 Neutrophils # 7.7 K/mm3 (1.3-6.0) H 01/03/17 23:05 Lymphocytes # 4.4 k/mm3 (1.5-3.5) H 01/03/17 23:05 Monocytes # 0.8 k/mm3 (0.0-1.0) 01/03/17 23:05 Eosinophils # 0.2 k/mm3 (0.0-0.7) 01/03/17 23:05 Absolute Basophils 0.0 k/mm3 (0.0-0.1) 01/03/17 23:05 PT 10.5 Seconds (9.4-11.4) 01/03/17 23:09 INR (Anticoag Therapy) 1.01 INR (0.90-1.10) 01/03/17 23:09 PTT ([place]) 24.4 Seconds (24-32) 01/03/17 23:09 D-Dimer 0.75 mg/L (0.19-0.49) H 01/03/17 23:09 Sodium 136 mmol/L (132-142) 01/03/17 23:09 Plasma Sodium 138 mmol/L (130-142) 01/03/17 23:09 Potassium 3.6 mmol/L (3.4-4.6) 01/03/17 23:09 Chloride 96 mmol/L (97-106) L 01/03/17 23:09 Carbon Dioxide 25.2 mmol/L (24-32.6) 01/03/17 23:09 Anion Gap 18.4 mmol/L (6.8-13.8) H 01/03/17 23:09 BUN 18 mg/dL (3-23) 01/03/17 23:09 Creatinine 1.14 mg/dL (0.4-1.4) 01/03/17 23:09 Est GFR (Non-Af Amer) 52 mL/min (60-130) L 01/03/17 23:09 BUN/Creatinine Ratio 15.8 (9.0-21.6) 01/03/17 23:09 Random Glucose 213 mg/dL (70-110) H 01/03/17 23:09 Calcium 8.9 mg/dL (7.9-10.9) 01/03/17 23:09 Calcium Adj for Albumin 9.1 mg/dL (8.4-10.2) 01/03/17 23:09 Total Bilirubin 0.5 mg/dL (0.0-1.1) 01/03/17 23:09 AST 32 U/L (0-48) 01/03/17 23:09 ALT 33 U/L (19-67) 01/03/17 23:09 Alkaline Phosphatase 60 U/L (50-170) 01/03/17 23:09 Troponin I 0.026 ng/ml (0.00-0.10) 01/04/17 01:15 B-Natriuretic Peptide 538 pg/mL (5-205) H 01/03/17 23:09 Total Protein 7.3 gm/dL (6.2-8.2) 01/03/17 23:09 Albumin 3.4 gm/dl (3.4-5.0) 01/03/17 23:09 Digoxin 0.7 ng/mL (0.5-2.0) 01/04/17 01:15 Assessment/Plan - Narrative Narrative: chest pain of unknown etiology - unlikely to be due to ACS since heart cath 09/2016 showed normal coronary arteries - ? musculoskeletal chest wall pain vs pericarditis vs other etiology - try one low dose of iv tordol to see if it helps - wbc mildly elevated - can be inflammatory - see above - check UA as a precaution - d-dimer mildly elevated - V/Q scan in am - has been given a dose of lovenox in ER at 1 mg/kg - monitor on telemetry - vital signs q 4 hours CHF, systolic, chronic - continue coreg, lisinopril and aldactone - watch I&Os closely due to low EF Code status: Full Code VTE: early ambulation / full code GI proph: protonix po. - Assessment/Plan (1) Chest pain of unknown etiology Problem: Acute (2) Left bundle branch block (LBBB) on electrocardiogram Problem: Chronic (3) Diabetes Problem: Chronic Qualifiers: Diabetes mellitus type: type 2 Diabetes mellitus complication status: with hyperglycemia Diabetes mellitus fdc insulin use: without fdc use Qualified Code(s): E11.65 - Type 2 diabetes mellitus with hyperglycemia (4) CHF (congestive heart failure) Problem: Chronic Qualifiers: Congestive heart failure type: systolic Congestive heart failure chronicity : chronic Qualified Code(s): I50.22 - Chronic systolic (congestive) heart failure
[2017-01-04] MEDS ORDERED: KETOROLAC TROMETHAMINE 15 MG/ML VIAL ONE (04:26)
[2017-01-04 08:38] LABS: Urine Bilirubin Negative (NEGATIVE); Urine Blood Negative /ul (NEGATIVE); Urine Ketone Negative (NEGATIVE); Urine Nitrite Negative (NEGATIVE); Urine Protein Negative (NEGATIVE); Urine Specific Gravity 1.025 SP.GR. (1.005-1.010); Urine Urobilinogen Normal (NORMAL); Urine pH 5.5 pH (5.0-7.0)
[2017-01-04 08:51] LABS: Urine Appearance Slightly Cloudy; Urine Bacteria 2+; Urine Color Yellow; Urine RBC 0-5 /hpf (0-5); Urine WBC 25-50 /hpf (0-5)
[2017-01-04] MEDS ORDERED: ALPRAZolam 0.25 MG TABLET PO PRN (10:48)
[2017-01-04] MEDS ORDERED: CARVEDILOL 6.25 MG TABLET PO ONE (10:55)
[2017-01-04] MEDS ORDERED: INSULIN DETEMIR 100 UNITS/ML VIAL SC ONE (11:33)
[2017-01-04] MEDS ORDERED: INSULIN ASPART 100 UNITS/ML VIAL SC SCH (12:00)
[2017-01-04 14:52] VITALS: BP 99/53
--- NOTE | 2017-01-04 16:03 | DS ---
(1) Chest pain Problem: Acute Qualifiers: Chest pain type: unspecified Qualified Code(s): R07.9 - Chest pain, unspecified (2) Poorly controlled diabetes mellitus Problem: Acute (3) Left bundle branch block (LBBB) on electrocardiogram Problem: Chronic (4) Cardiomyopathy Problem: Acute Description of Stay: DATE OF ADMISSION: 01/04/2017. DATE OF DISCHARGE: 01/05/2017. DIAGNOSTICS: NONE. DISCHARGE SUMMARY: Saumya Maloney is a 61-year-old WFwith a H/O cardiomyopathy with an EF of 10-15 %, NORMAL CORONARIES[ 09/2014], LBBB, RT breast cancer, S/P mastectomy treated with Adriamycin in 2004 who came into the ER for episodic chest pain. EKG showed left bundle branch block. Serial troponins were negative. Patient is scheduled for Bi V ICD in the next 1- 2 months at [facility]. Abnormal labs: D-dimer 0.75, GLU 213 mg/dL, BNP 513. CXR negative for acute infiltrate. Patient did have chest wall tenderness on exam. ER physician felt the patient required a VQ scan the next day due to elevation of d-dimer and was given Lovenox at 1 mg/kbw. PE was felt to be unlikely as a cause of chest pain next day. Patient was discharged in a stable condition. Procedures Performed: none Discharge Disposition: Home self care Disposition: Home self-care Condition: Stable Discharge Activity: Activity as tolerated Discharge Diet: Consistent carbs, Low fat/chol, High Fiber Referrals: Kiera Quintero MD [Primary Care Provider] - Problem Oriented Discharge Instructions to Patient/Family: Chest Pain Observation Additional Patient Instructions (free text): Please make sure the NovoLog dosage prints out Follow-up with Dr. Quintero on 01/15 at 2:00 p.m. Take lisinopril 2.5 mg at bedtime. Take spironolactone 25 mg at noon. Take furosemide 40 mg at noon. Prescriptions (Any new or edited meds): Nitroglycerin 0.4 mg SL PRN #25 tab.subl Complete Home Medications List: Complete Home Medication List: Levothyroxine Sodium [Synthroid] 50 mcg PO DAILY 11/21/12 metFORMIN HCL [Metformin HCl ER] 1,000 mg PO BID 11/21/12 Duloxetine HCl [Cymbalta] 60 mg PO DAILY 08/26/14 ALPRAZolam [Xanax] 0.25 mg PO TID PRN 08/04/16 Anastrozole [Arimidex] 1 mg PO DAILY 10/02/16 Aspirin [Mariaelena Chewable Aspirin] 81 mg PO DAILY 10/02/16 Atorvastatin Calcium [Lipitor] 40 mg PO HS 10/02/16 Carvedilol [Coreg] 6.25 mg PO BID 10/02/16 Cholecalciferol (Vitamin D3) [Vitamin D3] 5,000 unit PO DAILY 10/02/16 Digoxin [Lanoxin] 0.125 mg PO DAILY 10/02/16 Furosemide [Lasix] 40 mg PO DAILY 10/02/16 Insulin Detemir [Levemir] 42 units SC QAM 10/02/16 Insulin Detemir [Levemir] 44 units SC QPM 10/02/16 Lisinopril [Zestril] 2.5 mg PO DAILY 10/02/16 Spironolactone [Aldactone] 25 mg PO DAILY 10/02/16 Carvedilol [Coreg] 3.125 mg PO BID 01/04/17 Insulin Aspart [Novolog] See Protocol SC AC 01/04/17 Nitroglycerin 0.4 mg SL PRN #25 tab.subl 01/04/17
[2017-01-04] MEDS ORDERED: INSULIN DETEMIR 100 UNITS/ML VIAL SC SCH (17:00)
[2017-01-04] MEDS ORDERED: CARVEDILOL 6.25 MG TABLET PO SCH (21:00)
[2017-01-04] MEDS ORDERED: CARVEDILOL 3.125 MG TABLET PO SCH (21:00)
[2017-01-05] MEDS ORDERED: LEVOTHYROXINE SODIUM 50 MCG TABLET PO SCH (07:00)
[2017-01-05] MEDS ORDERED: CHOLECALCIFEROL 5,000 UNIT TABLET PO SCH (09:00)
[2017-01-05] MEDS ORDERED: INSULIN DETEMIR 100 UNITS/ML VIAL SC SCH (09:00)
[2017-01-05] MEDS ORDERED: FUROSEMIDE 40 MG TABLET PO SCH (09:00)
[2017-01-05] MEDS ORDERED: ROSUVASTATIN CALCIUM 20 MG TABLET PO SCH (09:00)
[2017-01-05] MEDS ORDERED: DIGOXIN 0.125 MG TABLET PO SCH (09:00)
[2017-01-05] MEDS ORDERED: Anastrozole [Arimidex] 1 MG PO SCH (09:00)
[2017-01-05] MEDS ORDERED: SPIRONOLACTONE 25 MG TABLET PO SCH (09:00)
[2017-01-05] MEDS ORDERED: LISINOPRIL 2.5 MG TABLET PO SCH (09:00)
[2017-01-05] MEDS ORDERED: DULoxetine HCL 30 MG CAPSULE.SA PO SCH (09:00)
[2017-01-05] MEDS ORDERED: ASPIRIN 81 MG TAB.CHEW PO SCH (09:00)
== END 2017-01-04 17:05 | disposition home or self-care (01) ==
LOC: ER 22:38 → MS 01-04 02:34
PROVIDERS: ADMIT Nurse Practitioner Critical Care Medicine; ATTEND Internal Medicine
DX: R07.9 Chest pain, unspecified (principal); I44.7 Left bundle-branch block, unspecified; I42.9 Cardiomyopathy, unspecified; I50.22 Chronic systolic (congestive) heart failure; E11.9 Type 2 diabetes mellitus without complications; Z79.4 Long term (current) use of insulin; Z79.84 Long term (current) use of oral hypoglycemic drugs; E78.5 Hyperlipidemia, unspecified; E03.9 Hypothyroidism, unspecified; M19.90 Unspecified osteoarthritis, unspecified site
CPT/HCPCS: 36415; 71010; 80053; 80162; 81001; 83880; 84484; 85025; 85379; 85610; 85652; 85730; 86140; 87086; 93005; 96372; 96374; 96375; 99284; G0378